=== PATIENT | female | born 1945 | race Caucasian/White ===

== ENCOUNTER 2016-09-16 11:06 | Day surgery (SDC) | payer MEDICARE ==
[2016-09-14 08:53] VITALS: BMI 39.5
[~2016-09-16 11:06] MED LIST: LACTATED RINGERS 1,000 ML IV SCH; LIDOCAINE 1% 20 ML VIAL (10MG/ML) FOR IV START INTRADERMA PRN
[2016-09-16 11:47] VITALS: TEMP 98
[2016-09-16] MEDS ORDERED: LACTATED RINGERS 1,000 ML IV ONE (11:47)
[2016-09-16] MEDS ORDERED: LEVOFLOXACIN 500MG-D5W PMX 500 MG in DEXTROSE/WATER 1 100ML.BAG IVPB ONE (12:00)
[2016-09-16 12:26] LABS: Partial Thromboplastin Time 23.2 sec (22.0-30.0); Prothrombin Time 10.2 sec (9.0-12.0)
[2016-09-16 12:29] LABS: Basophils # (A) 0.1 k/uL (0-0.2); Basophils % (A) 1 %; CH 29.9; CHCM 32.6; Eosinophils # (A) 0.1 k/uL (0-0.7); Eosinophils % (A) 2 %; HCT 43.3 % (34.0-46.0); HDW 2.35; HGB 14.4 gm/dL (11.4-16.0); Luc # (Auto) 0.18; Luc % (Auto) 3; Lymphocytes % (A) 30 %; MCH 30.6 pg (25.0-35.0); MCHC 33.2 g/dL (31.0-37.0); MCV 92.2 fL (80.0-100.0); Mean Platelet Volume 7.2; Monocytes # (A) 0.4 k/uL (0-1.0); Monocytes % (A) 5 %; Neutrophils % (A) 60 %; RBC 4.69 m/uL (3.80-5.40); RDW 12.8 % (11.5-15.5); WBC 6.7 k/uL (3.8-10.6); WBC (Perox) 6.23
[2016-09-16 12:31] LABS: AST 26 U/L (14-36); Alkaline Phosphatase 100 U/L (38-126); Anion Gap 9 mmol/L; Blood Urea Nitrogen 13 mg/dL (7-17); Carbon Dioxide 32 mmol/L (22-30); Chloride 101 mmol/L (98-107); Glucose 106 mg/dL (74-99); Non-African American GFR(MDRD) >60 (>60 ml/min/1.73 sqM); Potassium 4.8 mmol/L (3.5-5.1); Sodium 142 mmol/L (137-145); Total Bilirubin 0.5 mg/dL (0.2-1.3); Total Protein 7.2 g/dL (6.3-8.2)
[2016-09-16 12:37] LABS: ALT 49 U/L (9-52)
[2016-09-16] MEDS ORDERED: GLYCOPYRROLATE 0.2 MG/ML 2 ML VIAL ONE (13:01)
[2016-09-16] MEDS ORDERED: PROPOFOL 10 MG/ML 20 ML VIAL IV ONE (13:01)
[2016-09-16] MEDS ORDERED: LIDOCAINE 1% INJ 10MG/ML (20 ML MDV) ONE (13:01)
[2016-09-16] MEDS ORDERED: IOHEXOL 300 MG/ML 50 ML BOTTLE MISCELLANE ONE (13:35)
--- NOTE | 2016-09-16 13:38 | P.PCN ---
Date of Procedure: 09/16/16 Preoperative Diagnosis: Postoperative Diagnosis: Procedure(s) Performed: Brief history: Patient is a 71 year-old pleasant lady scheduled for an ERCP as part of evaluation of abdominal pain on-and-off for the last few months duration. She has history of recurrent choledocholithiasis and underwent multiple ERCPs in the past the last one was about 9 months ago and multiple stones were removed. Recently she is been having symptoms of intermittent epigastric and right upper quadrant abdominal pain. She is hence scheduled for repeat ERCP today. Procedure performed: ERCP with CBD stone extraction Preoperative diagnoses: Recurrent choledocholithiasis and intermittent abdominal pain. IV sedation per anesthesia: Procedure: After informed consent was obtained from the patient and after the risks benefits and complications including bleeding perforation and pancreatitis explained in detail the patient was brought into the endoscopy unit. The patient was placed in prone position and IV conscious sedation was administered by anesthesia under continuous monitoring. The Olympus side-viewing duodenoscope was then inserted into the mouth and esophagus intubated without any difficulty. The scope was gradually advanced into the stomach and duodenum. The major papilla was identified without any difficulty.There was evidence of previous biliary sphincterotomy noted. The sphincterotomy site appeared patent. This was cannulated without any difficulty and upon injection of the dye the common bile duct appeared significant dilated measuring about 2 cm in diameter was somewhat tortuous but no intrahepatic intrahepatic biliary ductal dilation. 1 cm filling defect was noted in the common bile duct. At this time I used a 12 mm balloon that was passed into the common bile duct gently inflated and withdrawn at least 4 stones were seen exiting the ampulla. Occlusion: Adjuvant was performed at this point and no other filling defects were noted. The pancreatic duct was intentionally not cannulated. The patient tolerated the procedure well. Impression: Dilated common bile duct measuring 2 cm in diameter with multiple small filling defects status post CBD stone extraction as described above. Patent biliary sphincterotomy site. Pancreatic duct not intentionally cannulated. Recommendations: The findings of this examination were discussed with the patient as well as a family. She was advised to continue with Actigall 300 mg twice daily and she'll be seen in office in 6 weeks from now. If she continues to have recurrent symptoms I will consider referring her to an outpatient tertiary care for management of recurrent CBD stones. Implants: Indications for Procedure: Operative Findings: Description of Procedure:
--- NOTE | 2016-09-16 13:47 | FL ---
EXAMINATION TYPE: FL ERCP HISTORY: Fluoroscopy time Impression: 1. Fluoroscopy support provided to the referring physician. 45 seconds of fluoroscopy time.
[2016-09-16 14:03] VITALS: BP 134/82; PULSE 78; RESP 18
--- NOTE | 2016-09-18 14:08 | CDI ---
Documentation Clarification OP Dear Dr. Patel. Please provide clarification regarding type of sedation provided. The Procedure note states IV conscious sedation was administered. The Anesthesia Record has MAC/Unconscious sedation circled under Technique. PLEASE RESPOND TO THIS QUERY BY DICTATING AN ADDENDUM TO YOUR PROCEDURE NOTE. Thank you for your assistance, RON White If you have any questions, please contact [facility] Angiography Technologist, Shirley Suarez at [phone]. [facility]
--- NOTE | 2016-09-21 05:42 | CDI ---
Documentation Clarification OP Dear Dr. Patel. Please provide clarification regarding type of sedation provided. The Procedure note states IV conscious sedation was administered. The Anesthesia Record has MAC/Unconscious sedation circled under Technique. PLEASE RESPOND TO THIS QUERY BY DICTATING AN ADDENDUM TO YOUR PROCEDURE NOTE. Thank you for your assistance, RON White If you have any questions, please contact [facility] Ruling Machine Set Up Operator, Shirley Suarez at [phone]. [facility]
--- NOTE | 2016-09-23 10:23 | CDI ---
Documentation Clarification OP Dear Dr. Patel. Please provide clarification regarding type of sedation provided. The Procedure note states IV conscious sedation was administered. The Anesthesia Record has MAC/Unconscious sedation circled under Technique. PLEASE RESOND TO THIS QUERY BY DICTATING AN ADDENDUM TO YOUR PROCEDURE NOTE. Thank you for your assistance, RON White If you have any questions, please contact [facility] Associate Professor Of Management, Shirley Suarez at . [facility]
--- NOTE | 2016-09-25 06:10 | CDI ---
Documentation Clarification OP Dear Dr. Patle. Please provide clarification regarding type of sedation provided. The Procedure note states IV conscious sedation was administered. The Anesthesia Record has MAC/Unconscious sedation circled under Technique. PLEASE RESPOND TO THIS QUERY BY DICTATING AN ADDENDUM TO YOUR PROCEDURE NOTE. Thank you for your assistance, RON White If you have any questions, please contact [facility] Learning Development Specialist, Shirley Suarez at [phone] [facility]
--- NOTE | 2016-09-30 05:17 | CDI ---
Documentation Clarification OP Dear Dr. Patel. Please provide clarification regarding type of sedation provided. The Procedure note states IV conscious sedation was administered. The Anesthesia Record has MAC/Unconscious sedation circled under Technique. PLEASE RESPOND TO THIS QUERY BY DICTATING AN ADDENDUM TO YOUR PROCEDURE NOTE. Thank you for your assistance RON White If you have any questions, please contact [facility] Actuarial Analyst, Shirley Suarez at [facility]
--- NOTE | 2016-10-06 07:07 | CDI ---
Documentation Clarification OP Dear Dr. Patel. Please provide clarification regarding type of sedation provided. The Procedure note states IV CONSCIOUS sedation was administered. The Anesthesia Record has MAC/UNCONSCIOUS sedation circled under Technique. PLEASE RESPOND TO THIS QUERY BY DICTATING AN ADDENDUM TO YOUR PROCEDURE NOTE. Thank you for your assistance RON White If you have any questions, please contact [facility] Microwave Engineer, Shirley Suarez at [facility]
--- NOTE | 2016-10-10 06:38 | CDI ---
Documentation Clarification OP Dear Dr. Patel. Please provide clarification regarding type of sedation provided. The Procedure note states IV conscious sedation was administered. The Anesthesia Record has MAC/Unconscious sedation circled under Technique. PLEASE RESPOND TO THIS QUERY BY DICTATING AN ADDENDUM TO YOUR PROCEDURE NOTE. Thank you for your assistance RON White If you have any questions, please contact [facility] In Store Representative, Shirley Suarez at [phone] [facility]
--- NOTE | 2016-10-15 08:59 | CDI ---
Documentation Clarification OP Dear Dr. Patel. Please provide clarification regarding type of sedation provided. The Anesthesia Record indicates that GA/Unconscious sedation was provided but Dr. Patel's template dictation says IV Conscious Sedation in the 3rd line of the Procedure Note under PROCEDURE heading. PLEASE RESPOND TO THIS QUERY BY DICTATING AN ADDENDUM TO YOUR PROCEDURE NOTE. Thank you for your assistance RON White If you have any questions, please contact [facility] Curriculum Director, Shirley Suarez at [facility]
--- NOTE | 2016-10-29 05:26 | PCN ---
PROCEDURE NOTE Date of Service: ADDENDUM NOTE: Addendum note for Dr. Pat Patel IV unconscious sedation was administered by Anesthesia for this patient's procedure. MMIMMANUELL / IJN: [id number] /
== END 2016-09-16 14:31 | disposition home or self-care (01) ==
LOC: ORWHC2ENDO 11:06
PROVIDERS: ATTEND Internal Medicine Gastroenterology
DX: K80.50 Calculus of bile duct without cholangitis or cholecystitis without obstruction (principal); K83.8 Other specified diseases of biliary tract; I10 Essential (primary) hypertension; E78.5 Hyperlipidemia, unspecified; J44.9 Chronic obstructive pulmonary disease, unspecified; K21.9 Gastro-esophageal reflux disease without esophagitis; E07.9 Disorder of thyroid, unspecified; Z79.899 Other long term (current) drug therapy; Z88.6 Allergy status to analgesic agent; Z88.5 Allergy status to narcotic agent
CPT/HCPCS: 80053; 85025; 85610; 85730; 74330; 43277; J1956; J2001; J2704; Q9967; 43260; 43264

== ENCOUNTER → 2018-08-30 | Outpatient (CLI) | payer MEDICARE ==
[2018-08-30 18:39] LABS: Appearance,BF Cloudy
[2018-08-30 18:48] LABS: Mononuclear WBC,Body Fluid 91 %; Polynuclear WBC,Body Fluid 9 %; Total Cells Counted,Body Fluid 100
[2018-08-31 10:32] LABS: Nucleated Cells, Body Fluid 280 /uL
[2018-08-31 10:33] LABS: RBC, Body Fluid 2500 /uL
== END | disposition home or self-care (01) ==
LOC: LABWHC1 15:04
PROVIDERS: ATTEND Orthopaedic Surgery
DX: M25.561 Pain in right knee (principal); Z09 Encounter for follow-up examination after completed treatment for conditions other than malignant neoplasm
CPT/HCPCS: 87070; 87075; 87205; 89050; 89060

== ENCOUNTER 2019-01-12 10:51 | Inpatient (IN) | payer MEDICARE ==
[2019-01-12] MEDS ORDERED: ONDANSETRON 4 MG/2 ML VIAL IVP STA (11:28)
[2019-01-12] MEDS ORDERED: SODIUM CHLORIDE 0.9% 1,000 ML IV STA ×2 (11:28)
--- NOTE | 2019-01-12 11:41 | ED ---
General Adult HPI - General Chief complaint: Recheck/Abnormal Lab/Rx Stated complaint: Kidney stones Time Seen by Provider: 01/12/19 11:10 Source: patient, RN notes reviewed Mode of arrival: wheelchair Limitations: physical limitation - History of Present Illness Initial comments: This 73-year-old female history of bile duct stones with several ERCPs having been performed in the past who states she had the onset around 2:30 AM this morning of severe 10+/10 mid and upper abdominal pain. She has nausea with that she still has nausea she states the pain is 0 right now. She states she has had a cholecystectomy in the past who has a tortuous, bile duct and does have frequency information. He has had occasional chills with this is chronic and not associated with today's event. No other modifying factors this time she did have some vomiting earlier today but was clear. - Related Data Home Medications Medication Instructions Recorded Confirmed Albuterol Inhaler [Ventolin Hfa 2 puff INHALATION Q6H PRN 11/07/15 09/14/16 Inhaler] Ascorbic Acid [Vitamin C] 500 mg PO DAILY 11/07/15 09/14/16 Cranberry Fruit Extract [Cranberry] 500 mg PO DAILY 11/07/15 09/14/16 Fish Oil/Dha/Epa [Fish Oil 1,200 1 each PO DAILY 11/07/15 09/14/16 mg Fish Oil] Levothyroxine Sodium [Synthroid] 50 mcg PO DAILY 11/07/15 09/14/16 Lisinopril [Prinivil] 5 mg PO DAILY 11/07/15 09/14/16 Multivitamins, Thera [Multivitamin] 1 tab PO DAILY 11/07/15 09/16/16 Omeprazole 20 mg PO DAILY 11/07/15 09/14/16 Simvastatin [Zocor] 40 mg PO HS 11/07/15 09/14/16 Tiotropium [place] [Spiriva] 1 cap INHALATION DAILY 11/07/15 09/14/16 Ursodiol [Davy] 250 mg PO BID 11/07/15 09/14/16 Vitamin E (Dl,Tocopheryl Acet) 800 unit PO DAILY 11/07/15 09/14/16 [Vitamin E] Betamethasone Dipropionate 1 applic TOPICAL DAILY 09/14/16 09/14/16 [Diprolene AF 0.05% Cream] Clotrimazole/Betameth Cream 1 applic TOPICAL BID 09/14/16 09/14/16 [Lotrisone] Nystatin 100,000 Unit/gm Powd 1 applic TOPICAL BID 09/14/16 09/14/16 [Mycostatin Powder] Allergies Allergy/AdvReac Type Severity Reaction Status Date / Time ibuprofen Allergy Severe Nausea Verified 01/12/19 11:15 codeine Allergy Intermediate Nausea Verified 01/12/19 11:15 Review of Systems ROS Statement: Those systems with pertinent positive or pertinent negative responses have been documented in the HPI. ROS Other: All systems not noted in ROS Statement are negative. Past Medical History Past Medical History: COPD, GERD/Reflux, Hyperlipidemia, Hypertension, Osteoarthritis (OA), Skin Disorder, Thyroid Disorder Additional Past Medical History / Comment(s): hx ulcerative colitis, rash on arms, irritation in abd. skin folds, bile stones History of Any Multi-Drug Resistant Organisms: None Reported Past Surgical History: Breast Surgery, Cholecystectomy, Hysterectomy, Joint Replacement, Tonsillectomy Additional Past Surgical History / Comment(s): rt knee replacement, cyst removed from back, rt breast biopsy, ERCP Past Anesthesia/Blood Transfusion Reactions: Motion Sickness Past Psychological History: No Psychological Hx Reported Smoking Status: Former smoker Past Alcohol Use History: Occasional Past Drug Use History: None Reported - Past Family History Mother Family Medical History: Cancer General Exam - General Exam Comments Initial Comments: This is a well-developed well-nourished awake alert oriented 3 female Limitations: physical limitation General appearance: alert, in no apparent distress Head exam: Present: atraumatic, normocephalic, normal inspection Eye exam: Present: normal appearance, PERRL, EOMI. Absent: scleral icterus, conjunctival injection, periorbital swelling ENT exam: Present: mucous membranes dry Neck exam: Present: normal inspection. Absent: tenderness, meningismus, lym phadenopathy Respiratory exam: Present: normal lung sounds bilaterally. Absent: respiratory distress, wheezes, rales, rhonchi, stridor Cardiovascular Exam: Present: regular rate, normal rhythm, normal heart sounds. Absent: systolic murmur, diastolic murmur, rubs, gallop, clicks GI/Abdominal exam: Present: soft, normal bowel sounds. Absent: distended, tenderness, guarding, rebound, rigid Extremities exam: Present: normal inspection, full ROM, normal capillary refill. Absent: tenderness, pedal edema, joint swelling, calf tenderness Back exam: Present: normal inspection Neurological exam: Present: alert, oriented X3, CN II-XII intact Psychiatric exam: Present: normal affect, normal mood Skin exam: Present: warm, dry, intact, normal color. Absent: rash Course Vital Signs 01/12/19 11:12 Temperature 98.7 F Pulse Rate 105 H Respiratory 18 Rate Blood Pressure 123/62 O2 Sat by Pulse 95 Oximetry Medical Decision Making - Medical Decision Making I did discuss findings with the patient family as well as Dr. Patel. Patient will be admitted to Dr. العلي's service with Dr. Patel and consult and ERCP pending. Her nausea is improved - Lab Data Result diagrams: 01/12/19 11:32 01/12/19 11:28 Lab Results 01/12/19 01/12/19 01/12/19 Range/Units 11:28 11:28 11:32 WBC 6.6 (3.8-10.6) k/uL RBC 4.46 (3.80-5.40) m/uL Hgb 13.6 (11.4-16.0) gm/dL Hct 41.0 (34.0-46.0) % MCV 92.1 (80.0-100.0) fL MCH 30.5 (25.0-35.0) pg MCHC 33.1 (31.0-37.0) g/dL RDW 12.7 (11.5-15.5) % Plt Count 200 (150-450) k/uL Neutrophils % (Manual) 74 % Band Neutrophils % 14 % Lymphocytes % (Manual) 7 % Monocytes % (Manual) 3 % Metamyelocytes % 2 % Myelocytes % 1 % Neutrophils # (Manual) 5.80 (1.3-7.7) k/uL Lymphocytes # (Manual) 0.46 L (1.0-4.8) k/uL Monocytes # (Manual) 0.20 (0-1.0) k/uL Metamyelocytes # (Man) 0.13 H (0) k/uL Myelocytes # (Manual) 0.07 H (0) k/uL Nucleated RBCs 0 (0-0) /100 WBC Manual Slide Review Performed Toxic Granulation Present Sodium 139 (137-145) mmol/L Potassium 4.0 (3.5-5.1) mmol/L Chloride 106 (98-107) mmol/L Carbon Dioxide 25 (22-30) mmol/L Anion Gap 8 mmol/L BUN 23 H (7-17) mg/dL Creatinine 0.52 (0.52-1.04) mg/dL Est GFR (CKD-EPI)AfAm >90 (>60 ml/min/1.73 sqM) Est GFR (CKD-EPI)NonAf >90 (>60 ml/min/1.73 sqM) Glucose 136 H (74-99) mg/dL Calcium 9.0 (8.4-10.2) mg/dL Total Bilirubin 1.8 H (0.2-1.3) mg/dL AST 238 H (14-36) U/L ALT 194 H (9-52) U/L Alkaline Phosphatase 123 (38-126) U/L Creatine Kinase 89 (30-135) U/L Troponin I <0.012 (0.000-0.034) ng/mL Total Protein 6.8 (6.3-8.2) g/dL Albumin 4.1 (3.5-5.0) g/dL Amylase <30 L (30-110) U/L Lipase 83 (23-300) U/L - Radiology Data Radiology results: report reviewed (I did review the imaging and report no acute findings.), image reviewed Disposition Clinical Impression: Abdominal pain, Biliary stones, Hyperbilirubinemia, Elevated liver enzymes Disposition: ADMITTED IP TO THIS [facility] Condition: Fair Referrals: Musa Wakefield MD [Primary Care Provider] - 1-2 days
[2019-01-12 11:54] LABS: HGB 13.6 gm/dL (11.4-16.0); MCH 30.5 pg (25.0-35.0); MCHC 33.1 g/dL (31.0-37.0); MCV 92.1 fL (80.0-100.0); Mean Platelet Volume 6.9; Platelet Count 200 k/uL (150-450); RBC 4.46 m/uL (3.80-5.40); RDW 12.7 % (11.5-15.5); WBC 6.6 k/uL (3.8-10.6)
[2019-01-12 12:05] LABS: ALT 194 U/L (9-52); AST 238 U/L (14-36); African American GFR (CKD) >90 (>60 ml/min/1.73 sqM); Albumin 4.1 g/dL (3.5-5.0); Alkaline Phosphatase 123 U/L (38-126); Amylase <30 U/L (30-110); Anion Gap 8 mmol/L; Blood Urea Nitrogen 23 mg/dL (7-17); Carbon Dioxide 25 mmol/L (22-30); Chloride 106 mmol/L (98-107); Creatine Kinase 89 U/L (30-135); Glucose 136 mg/dL (74-99); Non-African American GFR(CKD) >90 (>60 ml/min/1.73 sqM); Sodium 139 mmol/L (137-145); Total Bilirubin 1.8 mg/dL (0.2-1.3); Total Protein 6.8 g/dL (6.3-8.2)
[2019-01-12 12:15] LABS: Band Neutrophils % 14 %; Lymphocytes # (M) 0.46 k/uL (1.0-4.8); Metamyelocytes # (M) 0.13 k/uL (0); Metamyelocytes % 2 %; Myelocytes # (M) 0.07 k/uL (0); Myelocytes % 1 %; Neutrophils % (M) 74 %; Nucleated Red Blood Cells 0 /100 WBC (0-0); Total Cells Counted 200
[2019-01-12 12:17] LABS: Toxic Granulation Present
--- NOTE | 2019-01-12 12:38 | XR ---
EXAMINATION TYPE: XR KUB DATE OF EXAM: 01/12/2019 COMPARISON: NONE HISTORY: Right upper quadrant pain TECHNIQUE: One view abdominal series FINDINGS: The osseous structures are intact. The bowel gas pattern is nonspecific. Lung bases are clear. Dege nerative change of the spine. Postsurgical changes noted. Arthropathy of the hips correlate for femor al acetabular. IMPRESSION: 1. Nonspecific abdomen.
[2019-01-12] MEDS ORDERED: HYDROmorphone 0.5 MG/0.5 ML SYRINGE IVP PRN (13:05)
[2019-01-12] MEDS ORDERED: ONDANSETRON 4 MG/2 ML VIAL IVP PRN (13:05)
[2019-01-12] MEDS ORDERED: NALOXONE 0.4 MG/ML 1 ML VIAL IV PRN (13:05)
[2019-01-12] MEDS ORDERED: ALBUTEROL NEBULIZED 2.5 MG/3 ML INHALATION PRN (13:08)
[2019-01-12 13:53] LABS: Appearance,Urine Clear (Clear); Bilirubin,Urine 1+ (Negative); Blood,Urine Negative (Negative); Color,Urine Dark Yellow; Glucose,Urine (UA) Negative (Negative); Ketones,Urine Negative (Negative); Leukocyte Esterase,Urine Negative (Negative); Nitrite,Urine Negative (Negative); Protein,Urine Trace (Negative); Specific Gravity,Urine 1.026 (1.001-1.035)
[2019-01-12] MEDS: SODIUM CHLORIDE 0.9% 1,000 ML IV SCH ×2 (15:04→20:45)
[2019-01-12] MEDS ORDERED: KETOROLAC 30 MG/ML 1 ML VIAL IVP PRN (15:29)
[2019-01-12] MEDS ORDERED: NYSTATIN 100,000UNIT/GM CREAM 30 GM TUBE TOPICAL PRN (15:29)
--- NOTE | 2019-01-12 15:41 | P.HPIM ---
History of Present Illness Patient is a very pleasant 73-year-old female came in with complaints of right upper quadrant pain severe in/10 in severity up on admission completely resolved now with pain medications. Patient had a cholecystectomy in the past has a cautious bile that and had multiple episodes of stones in the common bile duct which needed intervention. Patient denied any fever chills. Patient is found to have elevated liver enzymes elevated bilirubin KUB x-ray was opted which did not show anything obtain ultrasound of the common bile duct. Patient appears to have choledocholithiasis at this time and gastroneurology was consulted. Antonia ent had some nausea. This resolved at this time. Review of Systems REVIEW OF SYSTEMS: CONSTITUTIONAL: No fever, no malaise, no fatigue. HEENT: No recent visual problems or hearing problems. Denied any sore throat. CARDIOVASCULAR: No chest pain, orthopnea, PND, no palpitations, no syncope. PULMONARY: No shortness of breath, no cough, no hemoptysis. GASTROINTESTINAL: No diarrhea NEUROLOGICAL: No headaches, no weakness, no numbness. HEMATOLOGICAL: Denies any bleeding or petechiae. GENITOURINARY: Denies any burning micturition, frequency, or urgency. MUSCULOSKELETAL/RHEUMATOLOGICAL: Denies any joint pain, swelling, or any muscle pain. ENDOCRINE: Denies any polyuria or polydipsia. The rest of the 14-point review of systems is negative. Past Medical History Past Medical History: COPD, GERD/Reflux, Hyperlipidemia, Hypertension, Osteoarthritis (OA), Skin Disorder, Thyroid Disorder Additional Past Medical History / Comment(s): hx ulcerative colitis, rash on arms, irritation in abd. skin folds, bile stones, hypothyroid History of Any Multi-Drug Resistant Organisms: None Reported Past Surgical History: Breast Surgery, Cholecystectomy, Hysterectomy, Joint Replacement, Tonsillectomy Additional Past Surgical History / Comment(s): rt knee replacement, cyst removed from back, rt breast biopsy, ERCP Past Anesthesia/Blood Transfusion Reactions: Motion Sickness Past Psychological History: No Psychological Hx Reported Smoking Status: Former smoker Past Alcohol Use History: Occasional Additional Past Alcohol Use History / Comment(s): quit smoking in 2011, smoked 1/2-1ppd for 50 yrs. Past Drug Use History: None Reported - Past Family History Mother Family Medical History: Cancer Medications and Allergies Home Medications Medication Instructions Recorded Confirmed Type Albuterol Inhaler [Ventolin Hfa 2 puff INHALATION RT-Q6H PRN 11/07/15 01/12/19 History Inhaler] Ascorbic Acid [Vitamin C] 500 mg PO DAILY 11/07/15 01/12/19 History Fish Oil/Dha/Epa [Fish Oil 1,200 1 cap PO DAILY 11/07/15 01/12/19 History mg Fish Oil] Lisinopril [Prinivil] 5 mg PO DAILY 11/07/15 01/12/19 History Multivitamins, Thera [Multivitamin] 1 tab PO DAILY 11/07/15 01/12/19 History Omeprazole 20 mg PO BID 11/07/15 01/12/19 History Simvastatin [Zocor] 40 mg PO HS 11/07/15 01/12/19 History Ursodiol [Davy] 250 mg PO TID-W/MEALS 11/07/15 01/12/19 History Vitamin E (Dl,Tocopheryl Acet) 800 unit PO DAILY 11/07/15 01/12/19 History [Vitamin E] Betamethasone Dipropionate 1 applic TOPICAL BID PRN 09/14/16 01/12/19 History [Diprolene AF 0.05% Cream] Clotrimazole/Betameth Cream 1 applic TOPICAL BID PRN 09/14/16 01/12/19 History [Lotrisone] Cholecalciferol [Vitamin D3 (25 1,000 unit PO DAILY 01/12/19 01/12/19 History Mcg = 1000 Iu)] Levothyroxine Sodium [Synthroid] 75 mcg PO HS 01/12/19 01/12/19 History Nystatin 1 applic TOPICAL BID PRN 01/12/19 01/12/19 History Tiotropium [place] [Spiriva 2 puff INHALATION RT-DAILY 01/12/19 01/12/19 History Respimat] Allergies Allergy/AdvReac Type Severity Reaction Status Date / Time ibuprofen Allergy Severe Nausea Verified 01/12/19 13:23 codeine Allergy Intermediate Nausea Verified 01/12/19 13:23 Physical Exam Vitals: Vital Signs Temp Pulse Pulse Resp BP BP Pulse Ox 01/12/19 15:07 99.9 F H 102 H 18 109/68 90 L 01/12/19 13:45 98.3 F 01/12/19 13:10 94 18 142/67 94 L 01/12/19 11:12 98.7 F 105 H 18 123/62 95 Intake and Output 01/12/19 01/12/19 01/12/19 06:59 14:59 22:59 Other: Weight 113.398 kg PHYSICAL EXAMINATION: GENERAL: The patient is alert and oriented x3, not in any acute distress. Well developed, well nourished. HEENT: Pupils are round and equally reacting to light. EOMI. No scleral icterus. No conjunctival pallor. Normocephalic, atraumatic. No pharyngeal erythema. No thyromegaly. CARDIOVASCULAR: S1 and S2 present. No murmurs, rubs, or gallops. PULMONARY: Chest is clear to auscultation, no wheezing or crackles. ABDOMEN: Soft, nontender, nondistended, normoactive bowel sounds. No palpable organomegaly. MUSCULOSKELETAL: No joint swelling or deformity. EXTREMITIES: No cyanosis, clubbing, or pedal edema. NEUROLOGICAL: Gross neurological examination did not reveal any focal deficits. SKIN: No rashes. Results CBC & Chem 7: 01/12/19 11:32 01/12/19 11:28 Labs: Abnormal Lab Results - Last 24 Hours (Table) 01/12/19 01/12/19 01/12/19 Range/Units 11:28 11:32 13:14 Lymphocytes # (Manual) 0.46 L (1.0-4.8) k/uL Metamyelocytes # (Man) 0.13 H (0) k/uL Myelocytes # (Manual) 0.07 H (0) k/uL BUN 23 H (7-17) mg/dL Glucose 136 H (74-99) mg/dL Total Bilirubin 1.8 H (0.2-1.3) mg/dL AST 238 H (14-36) U/L ALT 194 H (9-52) U/L Amylase <30 L (30-110) U/L Urine Protein Trace H (Negative) Urine Bilirubin 1+ H (Negative) Thrombosis Risk Factor Assmnt - Choose All That Apply Any of the Below Risk Factors Present?: Yes Each Factor Represents 1 point: Obesity (BMI >25), Swollen legs (current) Other Risk Factors: Yes Each Risk Factor Represents 2 Points: Age 61-74 years Other congenital or acquired thrombophilia - If yes, enter type in comment: No Thrombosis Risk Factor Assessment Total Risk Factor Score: 4 Thrombosis Risk Factor Assessment Level: Moderate Risk Assessment and Plan Plan: - right upper quadrant abdominal pain with elevated liver enzymes possibility of choledocholithiasis is no evidence of ascending cholangitis so far patient will not be started on any antibiotic support to get IV fluids patient was started on diet as I do not anticipate any ERCP today gastroenterology was consulted. Patient will be made nothing by mouth after midnight. -COPD without any acute acceleration - gastroesophageal reflux disease -hyperlipidemia -Hypertension -Hypothyroidism
--- NOTE | 2019-01-12 16:57 | US ---
EXAMINATION TYPE: US gallbladder DATE OF EXAM: 01/12/2019 COMPARISON: NONE CLINICAL HISTORY: elevated liver enzymes. Elevated LFT's, GB removed, RUQ pain EXAM MEASUREMENTS: Liver Length: 19.3 cm CBD: 1.3 cm Right Kidney: 12.0 x 6.2 x 6.0 cm Pancreas: 3mm duct visualized Liver: Enlarged, difficult to penetrate, pt unable to take a big breath in and hold it Gallbladder: Surgically absent Evidence for sonographic Barrett's sign: No CBD: Dilated with 2 probable stones within duct= 1.7 cm & 1.0 cm Right Kidney: Cyst mid= 7.1 x 5.6 x 6.5 cm/ Possible ill-defined hypoechoic lesion lower pole= 5.2 x 3.9 x 3.8 cm IMPRESSION: There are large common duct gallstones. Dilated common bile duct. Large right renal cysts . No right-sided hydronephrosis. No discrete liver mass.
[2019-01-12] MEDS: PIPERACILLIN-TAZOBACTAM 3.375 GM in SODIUM CHLORIDE 0.9% 100 ML IVPB SCH (17:20)
[2019-01-12] MEDS: CLOTRIMAZOLE/BETAMETH 1-0.05% CREAM 45 GM TUBE TOPICAL SCH (20:44)
[2019-01-12] MEDS: LEVOTHYROXINE 75 MCG TAB PO SCH (20:44)
[2019-01-12] MEDS: FAMOTIDINE 20 MG TAB PO SCH (20:44)
--- NOTE | 2019-01-12 23:01 | CONS ---
CONSULTATION DATE OF DICTATION: 01/12/2019 REASON FOR CONSULTATION: Severe epigastric pain, elevated LFTs and jaundice. HISTORY OF PRESENT ILLNESS: The patient is a 73-year-old pleasant white female who is known to me from her multiple previous office visits and hospitalizations. She has history of recurrent choledocholithiasis requiring multiple ERCPs over the last 4 years. Her last ERCP was in September of 2017 and CBD stones were extracted. She woke up this morning with severe epigastric pain radiating to the right upper quadrant area and had low-grade fever. She took 2 Tylenol, came into the emergency room, and was noted to have elevated serum transaminases and bilirubin up to 1.9. She was admitted to the hospital for further evaluation. She is at present feeling much better. The abdominal pain has resolved. She continues to have low-grade fever. PAST MEDICAL HISTORY: Past medical history is significant for: 1. Gastroesophageal reflux disease. 2. Hypertension. 3. Hyperlipidemia. 4. Degenerative joint disease. 5. COPD. 6. Hypothyroidism. PAST SURGICAL HISTORY: 1. Gallbladder surgery several years ago. 2. Breast surgery. 3. Hysterectomy. 4. Tonsillectomy. 5. Right knee replacement. 6. Multiple ERCPs, last one in September of 2017. MEDICATIONS: Medications at home include: 1. Albuterol. 2. Fish oil. 3. Vitamin C. 4. Multivitamin. 5. Prinivil. 6. Zocor. 7. Davy. 8. Spiriva. 9. Nystatin. 10.Synthroid. ALLERGIES: IBUPROFEN and CODEINE. SOCIAL HISTORY: No smoking. No alcohol use. FAMILY HISTORY: Mother had some kind of cancer. REVIEW OF SYSTEMS: CARDIOPULMONARY: No chest pain or shortness of breath. GENITOURINARY: No dysuria or hematuria. MUSCULOSKELETAL: Unremarkable. SKIN: Unremarkable. ENDOCRINE: Unremarkable. PSYCHIATRIC: Unremarkable. NEUROLOGY: Unremarkable. ENT/VISION: Unremarkable. CONSTITUTIONAL: No recent weight loss. No fever, chills, night sweats. PHYSICAL EXAMINATION: She appears comfortable. No apparent distress. VITAL SIGNS: Stable. Blood pressure is 109/68, pulse rate 102, temperature 99.9. HEENT examination unremarkable. Conjunctivae pink. Sclerae anicteric. Oral cavity no lesions. NECK: No JVD or lymph node enlargement. CHEST: Clear to auscultation. HEART: Regular rate and rhythm. ABDOMEN: Soft. Bowel sounds are positive. No organomegaly. EXTREMITIES: No pedal edema. SKIN: No rashes. NEUROLOGIC: Alert and oriented x3. No focal deficits. LABS: WBC 6.6, hemoglobin 13.6, platelets normal. T-bilirubin 1.8, AST 238, ALT 194, alkaline phosphatase normal. IMPRESSION: This is a lady who presents with acute onset of severe epigastric pain associated with low-grade fever and chills that started early this morning. She has prior history of gallbladder surgery many years ago and multiple and recurrent choledocholithiasis requiring pediatric ERCPs. The last one was in September of 2017, and CBD stones were extracted. She has low-grade fever. Possibility of ascending cholangitis needs to be considered. RECOMMENDATIONS: 1. Empiric antibiotics with Zosyn q.8 hours. 2. Clear liquid diet. 3. Repeat labs in the morning. 4. Will proceed with an ERCP tomorrow. I discussed with the patient risks, benefits and complications of the procedure, and she is agreeable to it. MMODL / IJN: [id number] /
[2019-01-13] MEDS: PIPERACILLIN-TAZOBACTAM 3.375 GM in SODIUM CHLORIDE 0.9% 100 ML IVPB SCH ×4 (00:29→23:51)
[2019-01-13] MEDS: SODIUM CHLORIDE 0.9% 1,000 ML IV SCH ×3 (05:30→23:53)
[2019-01-13] MEDS: IPRATROPIUM 0.5 MG/2.5 ML NEBU INHALATION SCH ×4 (08:24→19:37)
[2019-01-13] MEDS: BETAMETHASONE DIPROPIONATE 0.05% CREAM 15 GM TUBE TOPICAL SCH (08:57)
[2019-01-13] MEDS: CLOTRIMAZOLE/BETAMETH 1-0.05% CREAM 45 GM TUBE TOPICAL SCH ×2 (08:57→21:55)
[2019-01-13] MEDS: FAMOTIDINE 20 MG TAB PO SCH ×2 (08:58→21:55)
[2019-01-13] MEDS ORDERED: PANTOPRAZOLE 40 MG/10 ML VIAL IV SCH (09:00)
[2019-01-13 10:25] LABS: Basophils # (A) 0.1 k/uL (0-0.2); Basophils % (A) 1 %; Eosinophils # (A) 0.2 k/uL (0-0.7); Eosinophils % (A) 1 %; HGB 11.8 gm/dL (11.4-16.0); Lymphocytes # (A) 0.7 k/uL (1.0-4.8); Lymphocytes % (A) 6 %; MCH 30.3 pg (25.0-35.0); MCV 94.5 fL (80.0-100.0); Mean Platelet Volume 8.2; Monocytes # (A) 0.5 k/uL (0-1.0); Monocytes % (A) 4 %; Neutrophils # (A) 11.3 k/uL (1.3-7.7); Neutrophils % (A) 88 %; Platelet Count 165 k/uL (150-450); RBC 3.91 m/uL (3.80-5.40); RDW 13.1 % (11.5-15.5); WBC 12.9 k/uL (3.8-10.6)
[2019-01-13 10:43] LABS: ALT 141 U/L (9-52); AST 97 U/L (14-36); African American GFR (CKD) >90 (>60 ml/min/1.73 sqM); Albumin 3.3 g/dL (3.5-5.0); Alkaline Phosphatase 79 U/L (38-126); Anion Gap 6 mmol/L; Blood Urea Nitrogen 13 mg/dL (7-17); Calcium 8.6 mg/dL (8.4-10.2); Carbon Dioxide 32 mmol/L (22-30); Chloride 103 mmol/L (98-107); Glucose 109 mg/dL (74-99); Non-African American GFR(CKD) 87 (>60 ml/min/1.73 sqM); Potassium 3.5 mmol/L (3.5-5.1); Sodium 141 mmol/L (137-145); Total Bilirubin 1.4 mg/dL (0.2-1.3); Total Protein 5.8 g/dL (6.3-8.2)
[2019-01-13] MEDS ORDERED: INDOMETHACIN 50MG SUPPOSITORY RECTAL ONE (14:00)
[2019-01-13] MEDS ORDERED: IV FLUID CONTINUATION 300 ML IV ONE (15:44)
[2019-01-13] MEDS ORDERED: LIDOCAINE 1% INJ 10MG/ML (20 ML MDV) ONE (15:53)
[2019-01-13] MEDS ORDERED: fentaNYL (PF) 50 MCG/ML 2 ML AMP ONE (15:53)
[2019-01-13] MEDS ORDERED: GLUCAGON 1 MG/ML VIAL ONE (15:53)
[2019-01-13] MEDS ORDERED: KETAMINE 10 MG/ML 20 ML VIAL ONE (15:53)
[2019-01-13] MEDS ORDERED: PROPOFOL 10 MG/ML 20 ML VIAL IV ONE (15:53)
[2019-01-13] MEDS ORDERED: GLYCOPYRROLATE 0.2 MG/ML 2 ML VIAL ONE (15:53)
[2019-01-13] MEDS ORDERED: MIDAZOLAM 2 MG/2 ML VIAL ONE (15:53)
--- NOTE | 2019-01-13 16:33 | P.PN ---
Subjective Progress Note Date: 01/13/19 73-year-old female came in with complaints of right upper quadrant pain severe in/10 in severity up on admission completely resolved now with pain medications. Patient had a cholecystectomy in the past has a cautious bile that and had multiple episodes of stones in the common bile duct which needed intervention. Patient denied any fever chills. Patient is found to have elevated liver enzymes elevated bilirubin KUB x-ray was opted which did not show anything obtain ultrasound of the common bile duct. Patient appears to have choledocholithiasis at this time and gastroneurology was consulted. 01/13/2019 Patient is seen and evaluated in room at bedside; scheduled for ERCP this afternoon Vital signs remained stable with a temperature 97.6, pulse 92, respirations 16 and blood pressure of 116/55 Lab review shows slight elevation in white blood count of 12.9, hemoglobin 11.8 and platelet count of 165; total bilirubin and AST/ALT are trending down slowly Patient is scheduled for ERCP this afternoon for stone removal; we will continue to monitor liver enzymes; patient remains on IV Unasyn Objective - Vital Signs Vital signs: Vital Signs Temp 97.6 F 01/13/19 07:55 Pulse 92 01/13/19 07:55 Resp 16 01/13/19 07:55 BP 116/55 01/13/19 07:55 Pulse Ox 90 L 01/13/19 07:55 Intake & Output 01/12/19 01/13/19 01/13/19 18:59 06:59 18:59 Intake Total 2430 Balance 2430 Weight 113.398 kg Intake: Intake, IV Titration 1600 Amount Piperacillin-Tazobactam 3 100 .375 gm In Sodium Chloride 0.9% 100 ml @ 25 mls/hr IVPB Q8HR [facility] Rx# :[id number] Sodium Chloride 0.9% 1, 1500 000 ml @ 125 mls/hr IV . Q8H [facility] Rx#:[id number] Oral 830 Other: Voiding Method Toilet # Voids 4 # Bowel Movements 1 - Exam GENERAL: The patient is alert and oriented x3, not in any acute distress. Well developed, well nourished. HEENT: Pupils are round and equally reacting to light. EOMI. No scleral icterus. No conjunctival pallor. Normocephalic, atraumatic. No pharyngeal erythema. No thyromegaly. CARDIOVASCULAR: S1 and S2 present. No murmurs, rubs, or gallops. PULMONARY: Chest is clear to auscultation, no wheezing or crackles. ABDOMEN: Soft, nontender, nondistended, normoactive bowel sounds. No palpable organomegaly. MUSCULOSKELETAL: No joint swelling or deformity. EXTREMITIES: No cyanosis, clubbing, or pedal edema. NEUROLOGICAL: Gross neurological examination did not reveal any focal deficits. SKIN: No rashes. - Labs CBC & Chem 7: 01/13/19 10:06 01/13/19 10:06 Labs: Abnormal Lab Results - Last 24 Hours (Table) 01/12/19 01/12/19 01/12/19 Range/Units 11:28 11:32 13:14 WBC (3.8-10.6) k/uL Neutrophils # (1.3-7.7) k/uL Lymphocytes # (1.0-4.8) k/uL Lymphocytes # (Manual) 0.46 L (1.0-4.8) k/uL Metamyelocytes # (Man) 0.13 H (0) k/uL Myelocytes # (Manual) 0.07 H (0) k/uL BUN 23 H (7-17) mg/dL Glucose 136 H (74-99) mg/dL Total Bilirubin 1.8 H (0.2-1.3) mg/dL AST 238 H (14-36) U/L ALT 194 H (9-52) U/L Amylase <30 L (30-110) U/L Urine Protein Trace H (Negative) Urine Bilirubin 1+ H (Negative) 01/13/19 Range/Units 10:06 WBC 12.9 H (3.8-10.6) k/uL Neutrophils # 11.3 H (1.3-7.7) k/uL Lymphocytes # 0.7 L (1.0-4.8) k/uL Lymphocytes # (Manual) (1.0-4.8) k/uL Metamyelocytes # (Man) (0) k/uL Myelocytes # (Manual) (0) k/uL BUN (7-17) mg/dL Glucose (74-99) mg/dL Total Bilirubin (0.2-1.3) mg/dL AST (14-36) U/L ALT (9-52) U/L Amylase (30-110) U/L Urine Protein (Negative) Urine Bilirubin (Negative) Assessment and Plan Assessment: - right upper quadrant abdominal pain with elevated liver enzymes possibility of choledocholithiasis is no evidence of ascending cholangitis so far patient will not be started on any antibiotic support to get IV fluids patient was started on diet as I do not anticipate any ERCP today gastroenterology was consulted. Patient will be made nothing by mouth after midnight. -COPD without any acute acceleration - gastroesophageal reflux disease -hyperlipidemia -Hypertension -Hypothyroidism Time with Patient: Greater than 30
--- NOTE | 2019-01-13 17:04 | P.PCN ---
Date of Procedure: 01/13/19 Procedure(s) Performed: Brief history: Patient is a 73 year-old pleasant lady scheduled for an ERCP as part of evaluation of abdominal pain and elevated serum transaminases for the last 2 days' duration. Had low-grade fever. She has history of recurrent choledocholithiasis and last ERCP was performed in September 2017 and CBC stones were extracted. Procedure performed: ERCP with CBC on extraction Preoperative diagnoses: Epigastric and right upper quadrant abdominal pain and elevated LFTs/history of recurrent choledocholithiasis IV sedation per anesthesia: Procedure: After informed consent was obtained from the patient and after the risks benefits and complications including bleeding perforation and pancreatitis explained in detail the patient was brought into the endoscopy unit. The patient was placed in prone position and IV conscious sedation was administered by anesthesia under continuous monitoring. The Olympus side-viewing duodenoscope was then inserted into the mouth and esophagus intubated without any difficulty. The scope was gradually advanced into the stomach and duodenum. The major papilla was identified with moderate to severe difficulty. Evidence of prior biliary sphincterotomy noted. Initial cannulation resulted in opacification of the common bile duct. Common bile duct was dilated measuring 2 cm in diameter with multiple filling defects noted the largest measuring about 1.5 cm in size. At this time a 15 mm balloon was passed over the guidewire into the proximal CBD and gently withdrawn and significant amount of sludge and stones were seen exiting the ampulla. I was not able to withdraw the 15 mm balloon and hence 11.5 mm balloon was used to extract the stones. Patient tolerated the procedure well. Pancreatic duct was not intentionally cannulated. Impression: Dilated common bile duct with multiple filling defects status post balloon stone extraction and at least 3 or 4 stooling stones with significant amount of sludge extracted from the common bile duct. Pancreatic duct intentionally not cannulated. Recommendations: The findings of this examination were discussed with the patient as well as a family. She'll be started on clear liquid diet. Labs will be repeated tomorrow morning. Continue with antibiotics.
[2019-01-13] MEDS ORDERED: IOHEXOL 300 MG/ML 50 ML BOTTLE MISCELLANE ONE (17:10)
[2019-01-13] MEDS ORDERED: SODIUM CHLORIDE 0.9% 500 ML IV ONE (17:11)
[2019-01-13] MEDS: LEVOTHYROXINE 75 MCG TAB PO SCH (21:55)
[2019-01-14 05:42] LABS: Basophils % (A) 0 %; Eosinophils # (A) 0.1 k/uL (0-0.7); Eosinophils % (A) 1 %; HCT 35.5 % (34.0-46.0); HGB 11.6 gm/dL (11.4-16.0); Lymphocytes # (A) 0.8 k/uL (1.0-4.8); Lymphocytes % (A) 9 %; MCH 30.5 pg (25.0-35.0); MCHC 32.6 g/dL (31.0-37.0); MCV 93.6 fL (80.0-100.0); Monocytes # (A) 0.5 k/uL (0-1.0); Monocytes % (A) 5 %; Neutrophils # (A) 7.3 k/uL (1.3-7.7); Neutrophils % (A) 82 %; Platelet Count 150 k/uL (150-450); RBC 3.79 m/uL (3.80-5.40); WBC 8.8 k/uL (3.8-10.6)
[2019-01-14 06:06] LABS: ALT 99 U/L (9-52); AST 56 U/L (14-36); African American GFR (CKD) >90 (>60 ml/min/1.73 sqM); Albumin 3.1 g/dL (3.5-5.0); Alkaline Phosphatase 99 U/L (38-126); Anion Gap 6 mmol/L; Bilirubin, Delta 0.4 mg/dL (0.0-0.2); Bilirubin,Unconjugated 0.5 mg/dL (0.0-1.1); Blood Urea Nitrogen 11 mg/dL (7-17); Calcium 8.5 mg/dL (8.4-10.2); Carbon Dioxide 30 mmol/L (22-30); Chloride 102 mmol/L (98-107); Glucose 118 mg/dL (74-99); Non-African American GFR(CKD) 89 (>60 ml/min/1.73 sqM); Potassium 3.8 mmol/L (3.5-5.1); Sodium 138 mmol/L (137-145); Total Bilirubin 0.9 mg/dL (0.2-1.3); Total Protein 5.6 g/dL (6.3-8.2)
[2019-01-14] MEDS: SODIUM CHLORIDE 0.9% 1,000 ML IV SCH ×3 (08:41→20:22)
[2019-01-14] MEDS: FAMOTIDINE 20 MG TAB PO SCH ×2 (08:42→20:22)
[2019-01-14] MEDS: PIPERACILLIN-TAZOBACTAM 3.375 GM in SODIUM CHLORIDE 0.9% 100 ML IVPB SCH ×2 (08:42→15:29)
[2019-01-14] MEDS: IPRATROPIUM 0.5 MG/2.5 ML NEBU INHALATION SCH ×4 (08:43→20:11)
[2019-01-14] MEDS: BETAMETHASONE DIPROPIONATE 0.05% CREAM 15 GM TUBE TOPICAL SCH (08:48)
[2019-01-14] MEDS: CLOTRIMAZOLE/BETAMETH 1-0.05% CREAM 45 GM TUBE TOPICAL SCH (08:48)
--- NOTE | 2019-01-14 10:04 | PN ---
PROGRESS NOTE DATE OF DICTATION: January 14, 2019. REQUESTING PHYSICIAN: Dr. Musa Wakefield. The patient is a 73-year-old pleasant white female admitted to the hospital with severe epigastric and right upper quadrant abdominal pain and low-grade fever/ possible ascending cholangitis on broad-spectrum antibiotics. She has history of recurrent choledocholithiasis. She underwent an ERCP yesterday and was noted to have multiple CBD stones with sludge that were all extracted. She is feeling much better today. She still has some fatigue/weakness, on a clear liquid diet, tolerating well. No nausea, vomiting. PHYSICAL EXAMINATION: She appears comfortable, no apparent distress. VITAL SIGNS: Stable. Blood pressure is 150/80, pulse 98, temperature 98.5. HEENT examination unremarkable. Conjunctivae pink. Sclerae anicteric. Oral cavity no lesions, NECK: No JVD or lymph node enlargement. CHEST: Clear to auscultation. HEART: Regular rate and rhythm. ABDOMEN: Soft. Bowel sounds are positive. Minimal tenderness in the epigastric area. EXTREMITIES: No pedal edema. SKIN: No rashes. NEUROLOGIC: Alert and oriented x3. No focal deficits. LABS: WBC 8.8, hemoglobin 11.6, platelets normal. Basic metabolic panel is within normal limits. ALT and AST decreased to 56 and 99 respectively. T-bilirubin is 0.9. IMPRESSION: 1. Recurrent choledocholithiasis with possible ascending cholangitis on broad-spectrum antibiotics status post ERCP with CBD stone removal yesterday as mentioned above. She is feeling better. 2. Mild epigastric pain. RECOMMENDATIONS: 1. Advance to regular diet. 2. Continue with broad-spectrum antibiotics. 3. If the patient is feeling better, she can be discharged home later today or tomorrow morning. Thank you for this consultation. MMODL / IJN: [id number] /
--- NOTE | 2019-01-14 14:40 | P.PN ---
Subjective Progress Note Date: 01/14/19 Principal diagnosis: Possible ascending cholangitis Recurrent Choledocholithiasis 73-year-old female came in with complaints of right upper quadrant pain severe in/10 in severity up on admission completely resolved now with pain medications. Patient had a cholecystectomy in the past has a cautious bile that and had multiple episodes of stones in the common bile duct which needed intervention. Patient denied any fever chills. Patient is found to have elevated liver enzymes elevated bilirubin KUB x-ray was opted which did not show anything obtain ultrasound of the common bile duct. Patient appears to have choledocholithiasis at this time and gastroneurology was consulted. 01/13/2019 Patient is seen and evaluated in room at bedside; scheduled for ERCP this afternoon Vital signs remained stable with a temperature 97.6, pulse 92, respirations 16 and blood pressure of 116/55 Lab review shows slight elevation in white blood count of 12.9, hemoglobin 11.8 and platelet count of 165; total bilirubin and AST/ALT are trending down slowly Patient is scheduled for ERCP this afternoon for stone removal; we will continue to monitor liver enzymes; patient remains on IV Unasyn 01/14/2019; Patient is seen and evaluated at bedside; patient is status post ERCP with CBD stone extraction; common bile duct was found to be dilated with multiple filling defects; at least 3-4 stones were removed with significant amount of sludge extracted from the common bile duct; patient remains on IV Unasyn, continue for another 24 hours; patient remains afebrile with normal white blood count; patient has been started on diet from clear liquid and advance as tolerated; possible discharge in next 24 hours Objective - Vital Signs Vital signs: Vital Signs Temp 98.5 F 01/14/19 05:00 Pulse 88 01/14/19 08:54 Resp 18 01/14/19 05:00 BP 150/80 01/14/19 05:00 Pulse Ox 93 L 01/14/19 05:00 Intake & Output 01/13/19 01/14/19 01/14/19 18:59 06:59 18:59 Intake Total 1100 600 Balance 1100 600 Intake: IV 500 Intake, IV Titration 600 600 Amount Piperacillin-Tazobactam 3 100 100 .375 gm In Sodium Chloride 0.9% 100 ml @ 25 mls/hr IVPB Q8HR [facility] Rx# :[id number] Sodium Chloride 0.9% 1, 500 500 000 ml @ 125 mls/hr IV . Q8H [facility] Rx#:[id number] Other: Voiding Method Toilet Toilet # Voids 2 - Exam GENERAL: The patient is alert and oriented x3, not in any acute distress. Well developed, well nourished. HEENT: Pupils are round and equally reacting to light. EOMI. No scleral icterus. No conjunctival pallor. Normocephalic, atraumatic. No pharyngeal erythema. No thyromegaly. CARDIOVASCULAR: S1 and S2 present. No murmurs, rubs, or gallops. PULMONARY: Chest is clear to auscultation, no wheezing or crackles. ABDOMEN: Soft, nontender, nondistended, normoactive bowel sounds. No palpable organomegaly. MUSCULOSKELETAL: No joint swelling or deformity. EXTREMITIES: No cyanosis, clubbing, or pedal edema. NEUROLOGICAL: Gross neurological examination did not reveal any focal deficits. SKIN: No rashes. - Labs CBC & Chem 7: 01/14/19 05:05 01/14/19 05:05 Labs: Abnormal Lab Results - Last 24 Hours (Table) 01/13/19 01/14/19 01/14/19 Range/Units 10:06 05:05 05:05 RBC 3.79 L (3.80-5.40) m/uL Lymphocytes # 0.8 L (1.0-4.8) k/uL Carbon Dioxide 32 H (22-30) mmol/L Glucose 109 H 118 H (74-99) mg/dL Total Bilirubin 1.4 H (0.2-1.3) mg/dL Delta Bilirubin 0.4 H (0.0-0.2) mg/dL AST 97 H 56 H (14-36) U/L ALT 141 H 99 H (9-52) U/L Total Protein 5.8 L 5.6 L (6.3-8.2) g/dL Albumin 3.3 L 3.1 L (3.5-5.0) g/dL Assessment and Plan Assessment: - right upper quadrant abdominal pain with elevated liver enzymes possibility of choledocholithiasis is no evidence of ascending cholangitis so far patient will not be started on any antibiotic support to get IV fluids patient was started on diet as I do not anticipate any ERCP today gastroenterology was consulted. Patient will be made nothing by mouth after midnight. -COPD without any acute acceleration - gastroesophageal reflux disease -hyperlipidemia -Hypertension -Hypothyroidism Time with Patient: Greater than 30
--- NOTE | 2019-01-14 15:16 | FL ---
EXAMINATION TYPE: FL ERCP DATE OF EXAM: 01/13/2019 CLINICAL HISTORY: Fluoroscopic documentation during ERCP TECHNIQUE: Fluoroscopy. COMPARISON: None. FINDINGS: Fluoroscopic guidance was provided during procedure performed by Dr. العلي. A total of 2 minutes and 17 seconds of fluoroscopic time was utilized during the procedure and 1 spot images was a cquired during ERCP. IMPRESSION: As Above.
[2019-01-14] MEDS: LEVOTHYROXINE 75 MCG TAB PO SCH (20:22)
[2019-01-15] MEDS: PIPERACILLIN-TAZOBACTAM 3.375 GM in SODIUM CHLORIDE 0.9% 100 ML IVPB SCH ×2 (00:31→08:03)
[2019-01-15] MEDS: SODIUM CHLORIDE 0.9% 1,000 ML IV SCH (04:13)
[2019-01-15 06:49] LABS: ALT 78 U/L (9-52); AST 33 U/L (14-36); African American GFR (CKD) >90 (>60 ml/min/1.73 sqM); Albumin 3.4 g/dL (3.5-5.0); Alkaline Phosphatase 89 U/L (38-126); Anion Gap 5 mmol/L; Bilirubin, Delta 0.3 mg/dL (0.0-0.2); Bilirubin,Unconjugated 0.3 mg/dL (0.0-1.1); Blood Urea Nitrogen 8 mg/dL (7-17); Calcium 8.6 mg/dL (8.4-10.2); Carbon Dioxide 33 mmol/L (22-30); Chloride 103 mmol/L (98-107); Glucose 113 mg/dL (74-99); Non-African American GFR(CKD) >90 (>60 ml/min/1.73 sqM); Potassium 3.5 mmol/L (3.5-5.1); Sodium 141 mmol/L (137-145); Total Bilirubin 0.6 mg/dL (0.2-1.3); Total Protein 6.1 g/dL (6.3-8.2)
[2019-01-15] MEDS: FAMOTIDINE 20 MG TAB PO SCH (08:03)
[2019-01-15] MEDS: BETAMETHASONE DIPROPIONATE 0.05% CREAM 15 GM TUBE TOPICAL SCH (08:04)
[2019-01-15] MEDS: CLOTRIMAZOLE/BETAMETH 1-0.05% CREAM 45 GM TUBE TOPICAL SCH (08:04)
[2019-01-15] MEDS: IPRATROPIUM 0.5 MG/2.5 ML NEBU INHALATION SCH ×2 (08:19→11:51)
--- NOTE | 2019-01-15 10:56 | PN ---
PROGRESS NOTE DATE OF SERVICE: January 15, 2019 REQUESTING PHYSICIAN: Dr. Musa Wakefield. The patient is a 73-year-old pleasant white female admitted to the hospital with acute right upper quadrant abdominal pain and low-grade fever, was noted to have a history of recurrent choledocholithiasis. She underwent an ERCP with CBD stone extraction. She is feeling much better today. Still has some mild right upper quadrant abdominal pain. No fever, chills, night sweats. PHYSICAL EXAMINATION: She appears comfortable. No apparent distress. VITAL SIGNS: Stable. Blood pressure is 131/75, pulse rate is 79, temperature 98.7. HEENT examination unremarkable. Conjunctivae pink. Sclerae anicteric. Oral cavity no lesions. NECK: No JVD or lymph node enlargement. Chest was clear to auscultation. HEART: Regular rate and rhythm. ABDOMEN: Soft. Mild tenderness in the right upper quadrant area. The rest of the abdomen is benign. Extremities: No pedal edema. Skin no rashes. NEUROLOGIC: Alert and oriented x3. No focal deficits. LABS: From today AST and ALT are 33 and 78 respectively. T-bilirubin and alkaline phosphatase are normal. IMPRESSION: 1. Recurrent choledocholithiasis status post ERCP with CBD stone removal 2 days ago. 2. Low-grade fever and mild leukocytosis, possible ascending cholangitis on broad- spectrum antibiotics doing well. RECOMMENDATIONS: 1. Advance diet. 2. She can be discharged home today with outpatient followup in 2-3 weeks. 3. Continue with Actigall 300 mg twice daily. Thank you for this consultation. MMODL / IJN: [id number] /
[2019-01-15 11:31] VITALS: BP 152/89; RESP 17; TEMP 98.6
[2019-01-15 12:03] VITALS: PULSE 84
== END 2019-01-15 14:42 | disposition home or self-care (01) | DRG 445 ==
LOC: EC 10:51 → 3NMEDONC 13:05 → OBSVTOIN 01-15 08:55
PROVIDERS: ADMIT Hospitalist; ATTEND Hospitalist
DX: K80.30 Calculus of bile duct with cholangitis, unspecified, without obstruction (principal); K51.90 Ulcerative colitis, unspecified, without complications; J44.9 Chronic obstructive pulmonary disease, unspecified; D72.829 Elevated white blood cell count, unspecified; K21.9 Gastro-esophageal reflux disease without esophagitis; E78.5 Hyperlipidemia, unspecified; I10 Essential (primary) hypertension; E03.9 Hypothyroidism, unspecified; M19.90 Unspecified osteoarthritis, unspecified site; L98.9 Disorder of the skin and subcutaneous tissue, unspecified; Z79.890 Hormone replacement therapy; Z79.899 Other long term (current) drug therapy; Z87.891 Personal history of nicotine dependence; Z90.49 Acquired absence of other specified parts of digestive tract; Z96.651 Presence of right artificial knee joint; Z90.710 Acquired absence of both cervix and uterus; Z98.890 Other specified postprocedural states; Z88.6 Allergy status to analgesic agent; Z88.5 Allergy status to narcotic agent; Z80.9 Family history of malignant neoplasm, unspecified
CPT/HCPCS: 36415; 43264; 43277; 74018; 74330; 76705; 80053; 81003; 82150; 82248; 82550; 83690; 84484; 85025; 94640; 94760; 96361; 96374; 99285

== ENCOUNTER 2020-07-19 12:45 | Day surgery (SDC) | payer MEDICARE ==
[2020-07-16 16:16] VITALS: BMI 42.9
[2020-07-19] MEDS ORDERED: LEVOFLOXACIN 500MG-D5W PMX 500 MG in DEXTROSE/WATER 1 100ML.BAG IVPB STA (12:51)
[2020-07-19] MEDS: LACTATED RINGERS 1,000 ML IV SCH ×2 (13:58→14:14)
[2020-07-19 14:05] VITALS: TEMP 98.6
[2020-07-19] MEDS ORDERED: PROPOFOL 10 MG/ML 20 ML VIAL IV ONE (14:17)
[2020-07-19] MEDS ORDERED: LIDOCAINE 1% INJ 10MG/ML (20 ML MDV) ONE (14:17)
[2020-07-19] MEDS ORDERED: GLYCOPYRROLATE 0.2 MG/ML 2 ML VIAL ONE (14:17)
[2020-07-19] MEDS ORDERED: KETAMINE 10 MG/ML 20 ML VIAL ONE (14:17)
[2020-07-19] MEDS ORDERED: MIDAZOLAM 2 MG/2 ML VIAL ONE (14:17)
[2020-07-19] MEDS ORDERED: fentaNYL (PF) 50 MCG/ML 2 ML AMP ONE (14:17)
[2020-07-19 14:18] LABS: Basophils # (A) 0.1 k/uL (0-0.2); Basophils % (A) 1 %; Eosinophils # (A) 0.2 k/uL (0-0.7); Eosinophils % (A) 2 %; HCT 43.5 % (34.0-46.0); HGB 14.4 gm/dL (11.4-16.0); Lymphocytes # (A) 1.9 k/uL (1.0-4.8); Lymphocytes % (A) 24 %; MCH 30.3 pg (25.0-35.0); MCHC 33.1 g/dL (31.0-37.0); MCV 91.4 fL (80.0-100.0); Mean Platelet Volume 8.2; Monocytes # (A) 0.6 k/uL (0-1.0); Monocytes % (A) 7 %; Neutrophils # (A) 4.9 k/uL (1.3-7.7); Neutrophils % (A) 63 %; Platelet Count 262 k/uL (150-450); RBC 4.76 m/uL (3.80-5.40); RDW 12.9 % (11.5-15.5); WBC 7.8 k/uL (3.8-10.6)
[2020-07-19 14:30] LABS: ALT 25 U/L (4-34); AST 35 U/L (14-36); African American GFR (CKD) >90 (>60 ml/min/1.73 sqM); Albumin 4.6 g/dL (3.5-5.0); Alkaline Phosphatase 77 U/L (38-126); Anion Gap 8 mmol/L; Blood Urea Nitrogen 19 mg/dL (7-17); Calcium 9.7 mg/dL (8.4-10.2); Carbon Dioxide 31 mmol/L (22-30); Chloride 102 mmol/L (98-107); Glucose 109 mg/dL (74-99); Non-African American GFR(CKD) >90 (>60 ml/min/1.73 sqM); Potassium 4.2 mmol/L (3.5-5.1); Sodium 141 mmol/L (137-145); Total Bilirubin 0.7 mg/dL (0.2-1.3); Total Protein 7.2 g/dL (6.3-8.2)
[2020-07-19] MEDS ORDERED: IOPAMIDOL-300 50ML BTL MISCELLANE ONE (14:35)
[2020-07-19 14:37] LABS: INR 0.9 (<1.2)
--- NOTE | 2020-07-19 14:53 | P.PCN ---
Date of Procedure: 07/19/20 Procedure(s) Performed: Brief history: Patient is a 74 year-old pleasant lady scheduled for an ERCP as part of evaluation of right upper quadrant abdominal pain for the last 2 weeks' duration. She has history of recurrent CBD stones and underwent multiple ERCPs the last t ERCP was done in December 2018 and multiple CVA stones were extracted. Procedure performed: ERCP with balloon sweep Preoperative diagnoses: Right upper quadrant abdominal pain of 2 weeks' duration and recurrent choledocholithiasis IV sedation per anesthesia: Procedure: After informed consent was obtained from the patient and after the risks benefits and complications including bleeding perforation and pancreatitis explained in detail the patient was brought into the endoscopy unit. The patient was placed in prone position and IV conscious sedation was administered by anesthesia under continuous monitoring. The Olympus side-viewing duodenoscope was then inserted into the mouth and esophagus intubated without any difficulty. The scope was gradually advanced into the stomach and duodenum. The major papilla was identified with some difficulty. There was evidence of previous biliary sphincterotomy noted. This was widely patent. The common bile was cannulated without any difficulty using the tapered-tip catheter and upon injection of the right appeared dilated measuring 2 cm in diameter and no obvious filling defects were identified. At this time I passed the 15 mm balloon into the proximal common bile duct and gently inflated and withdrawn and did not see any stones exiting the ampulla. This maneuver was repeated several times and no stones were seen exiting the ampulla. At this time the procedure was terminated and the patient tolerated the procedure well. The pancreatic duct was intentionally not cannulated. Impression: Dilated common bile duct measuring 2 cm in diameter with no filling defects status post balloon sweep and no stones seen exiting the ampulla Patent biliary sphincterotomy site Pancreatic duct intentionally not cannulated Recommendations: The findings of this examination were discussed with the patient as well as a family. She was advised to follow up in office in 2-3 weeks.
[2020-07-19 15:06] VITALS: RESP 16
--- NOTE | 2020-07-19 15:24 | FL ---
Fluoroscopy HISTORY:: Bile duct stricture 54 seconds fluoroscopy time supplied to the referring clinician. 2 intraoperative C-arm images docum ent the procedure. See dictated report from gastroenterology.
[2020-07-19 16:12] VITALS: BP 115/75; PULSE 81
== END 2020-07-19 16:16 | disposition home or self-care (01) ==
LOC: ORWHC2ENDO 12:45
PROVIDERS: ATTEND Internal Medicine Gastroenterology
DX: K83.1 Obstruction of bile duct (principal); Q44.5 Other congenital malformations of bile ducts; I10 Essential (primary) hypertension; E78.5 Hyperlipidemia, unspecified; J44.9 Chronic obstructive pulmonary disease, unspecified; Z86.73 Personal history of transient ischemic attack (TIA), and cerebral infarction without residual deficits; K21.9 Gastro-esophageal reflux disease without esophagitis; Z79.890 Hormone replacement therapy; Z98.890 Other specified postprocedural states; Z88.6 Allergy status to analgesic agent; Z79.899 Other long term (current) drug therapy; Z88.5 Allergy status to narcotic agent
CPT/HCPCS: 43277; 80053; 85025; 85610; 74330; J2250; J2001; J3010; J2704; Q9967; 43260

== ENCOUNTER 2021-06-20 11:15 | Day surgery (SDC) | payer MEDICARE ==
[~2021-06-20 11:15] MED LIST changes: -LIDOCAINE 1% 20 ML VIAL (10MG/ML) FOR IV START INTRADERMA PRN
[2021-06-20 11:47] VITALS: TEMP 98.9
[2021-06-20] MEDS ORDERED: LEVOFLOXACIN 500MG-D5W PMX 500 MG in DEXTROSE/WATER 1 100ML.BAG IVPB STA (11:56)
[2021-06-20 12:18] LABS: Basophils % (A) 1 %; Eosinophils # (A) 0.1 k/uL (0-0.7); Eosinophils % (A) 1 %; HCT 40.8 % (34.0-46.0); HGB 13.6 gm/dL (11.4-16.0); Lymphocytes # (A) 1.2 k/uL (1.0-4.8); Lymphocytes % (A) 14 %; MCHC 33.3 g/dL (31.0-37.0); MCV 93.1 fL (80.0-100.0); Mean Platelet Volume 8.1; Monocytes # (A) 0.7 k/uL (0-1.0); Monocytes % (A) 8 %; Neutrophils # (A) 6.4 k/uL (1.3-7.7); Neutrophils % (A) 72 %; Platelet Count 292 k/uL (150-450); RBC 4.39 m/uL (3.80-5.40); WBC 8.9 k/uL (3.8-10.6)
[2021-06-20 12:40] LABS: ALT 28 U/L (4-34); AST 28 U/L (14-36); African American GFR (CKD) >90 (>60 ml/min/1.73 sqM); Alkaline Phosphatase 113 U/L (38-126); Anion Gap 10 mmol/L; Blood Urea Nitrogen 17 mg/dL (7-17); Calcium 9.3 mg/dL (8.4-10.2); Carbon Dioxide 31 mmol/L (22-30); Chloride 97 mmol/L (98-107); Glucose 116 mg/dL (74-99); Non-African American GFR(CKD) >90 (>60 ml/min/1.73 sqM); Potassium 4.2 mmol/L (3.5-5.1); Sodium 138 mmol/L (137-145); Total Bilirubin 1.2 mg/dL (0.2-1.3); Total Protein 7.2 g/dL (6.3-8.2)
[2021-06-20] MEDS ORDERED: PROPOFOL 10 MG/ML 20 ML VIAL IV ONE (13:46)
[2021-06-20] MEDS ORDERED: LIDOCAINE 1% INJ 10MG/ML (20 ML MDV) ONE (13:46)
[2021-06-20] MEDS ORDERED: KETAMINE 10 MG/ML 20 ML VIAL ONE (13:46)
[2021-06-20] MEDS ORDERED: MIDAZOLAM 2 MG/2 ML VIAL ONE (13:46)
[2021-06-20] MEDS ORDERED: IOPAMIDOL-300 50ML BTL INJ ONE (14:29)
--- NOTE | 2021-06-20 14:33 | P.PCN ---
Date of Procedure: 06/20/21 Procedure(s) Performed: Brief history: Patient is a 75 year-old pleasant lady scheduled for an ERCP as part of evaluation of intermittent episodes of epigastric pain and right upper quadrant abdominal pain for the last 6 weeks duration. Patient had history of choledocholithiasis and underwent several ERCPs in the past the last one was in June 2020 for retained common bile duct stone. For the last 6 weeks she is been having intermittent episodes of painless lasted about 4-5 hours but 3 years ago she had severe pain associated with low-grade fever and chills. She isn't scheduled for ERCP and clinical suspicion for retained common bile Procedure performed: ERCP with CBD stone extraction Preoperative diagnoses: Epigastric pain and history of choledocholithiasis IV sedation per anesthesia: Procedure: After informed consent was obtained from the patient and after the risks benefits and complications including bleeding perforation and pancreatitis explained in detail the patient was brought into the endoscopy unit. The patient was placed in prone position and IV conscious sedation was administered by anesthesia under continuous monitoring. The Olympus side-viewing duodenoscope was then inserted into the mouth and esophagus intubated without any difficulty. The scope was gradually advanced into the stomach and duodenum. Duodenal diverticulum identified. The major papilla was identified with difficulty. Initial cannulation with a taper-tip catheter resulted in opacification of the common bile duct and biliary sphincterotomy was patent. The common bile duct appeared dilated measuring 2 cm in diameter and there were 2 large filling defects identified in the proximal and mid CBD. Distal 15 mm balloon was passed into the common bile duct gently inflated and withdrawn and there was significant amount of sludge and 2 large stones exiting the ampulla. Occlusion cholangiogram was performed and no other filling defects were identified and this time the procedure was terminated and the patient tolerated the procedure well. Enteric duct was intentionally not cannulated. Impression: Dilated common bile duct measuring 2 cm in diameter with 2 large filling defects noted, status post balloon stone extraction as described above Extraction of CBD sludge with a balloon catheter Large duodenal diverticulum Recommendations: The findings of this examination were discussed with the patient as well as a family. She will be on a clear liquid diet today. Follow- up in office in 3-4 weeks.
--- NOTE | 2021-06-20 14:48 | FL ---
EXAMINATION TYPE: FL ERCP HISTORY: Fluoroscopy time Impression: 1. Fluoroscopy support provided to the referring physician.
[2021-06-20 15:08] VITALS: BP 106/62; PULSE 86; RESP 15
== END 2021-06-20 15:28 | disposition home or self-care (01) ==
LOC: ORWHC2ENDO 11:15
PROVIDERS: ATTEND Internal Medicine Gastroenterology
DX: K57.10 Diverticulosis of small intestine without perforation or abscess without bleeding (principal); K83.8 Other specified diseases of biliary tract
CPT/HCPCS: 43264; 80053; 85025; 85610; 85730; 74330; J2250; J1956; J2001; J2704; Q9967

== ENCOUNTER 2021-11-22 15:09 | Emergency (ER) | payer MEDICARE ==
[2021-11-22] MEDS ORDERED: LIDOCAINE 1%-EPI 1:100,000 20 ML VIAL SQ STA (16:10)
--- NOTE | 2021-11-22 16:16 | ED ---
General Adult HPI - General Chief complaint: Skin/Abscess/Foreign Body Stated complaint: Sore on hand and R foot Time Seen by Provider: 11/22/21 15:26 Source: patient Mode of arrival: ambulatory Limitations: no limitations - History of Present Illness Initial comments: Dictation was produced using [employer] dictation software. please excuse any gramma tical, word or spelling errors. Chief Complaint: 76-year-old female presents with extremity rash History of Present Illness: To 76-year-old female presents to the emergency Department with extremity rash. 7 days ago she noticed a rash pop up over her right wrist. She was seen at orthopedic surgery's office. They tani a fluid collection sample. Allegedly this fluid sample was sent for testing. So unclear what this fluid testing was sent for. Patient states that it's pain read to that site. She was put on steroids and antibiotics. Patient is given Bactrim. She saw Dr. De La Paz for this. Patient today felt like her symptoms not improving prompting her to come to the emergency department. Patient also has a another area of redness over the left medial malleolus. She states that it's also painful. The ROS documented in this emergency department record has been reviewed and confirmed by me. Those systems with pertinent positive or negative responses have been documented in the HPI. All other systems are other negative and/or noncontributory. PHYSICAL EXAM: General Impression: Alert and oriented x3, not in acute distress HEENT: Normocephalic atraumatic, extra-ocular movements intact, pupils equal and reactive to light bilaterally, mucous membranes moist. Cardiovascular: Heart regular rate and rhythm Chest: Able to complete full sentences, no retractions, no tachypnea Musculoskeletal: Pulses present and equal in all extremities, no peripheral edema Motor: no focal deficits noted Neurological: CN II-XII grossly intact, no focal motor or sensory deficits noted Skin: Intact with no visualized rashes, cellulitic changes over the medial malleolus Right wrist: There is a fluctuant erythematous painful and warm blanching area over the dorsum of the wrist. [id number] bedside ultrasound shows heterogeneous fluid collection. There is concerns of soft tissue abscess with surrounding cellulitis. Psych: Normal affect and mood ED course: 76-year-old female presents emergency department for right upper extremity abscess. Vital Signs upon arrival are within acceptable limits. There is heterogeneous material seen in a relatively anechoic space. Needle aspiration was performed. There was not any purulent drainage removed. Likely that collection is thick and caseous unable to be aspirated. Patient prescription for Keflex. He is told to complete her Bactrim prescription. Advised follow-up with Dr. De La Paz. - Related Data Home Medications Medication Instructions Recorded Confirmed Albuterol Inhaler [Ventolin Hfa 2 puff INHALATION RT-Q6H PRN 11/07/15 06/20/21 Inhaler] Ascorbic Acid [Vitamin C] 500 mg PO DAILY 11/07/15 06/20/21 Fish Oil/Dha/Epa [Fish Oil 1,200 1 cap PO DAILY 11/07/15 06/20/21 mg Fish Oil] Lisinopril [Prinivil] 5 mg PO QAM 11/07/15 06/20/21 Multivitamins, Thera [Multivitamin 1 tab PO DAILY 11/07/15 06/20/21 (formulary)] Omeprazole 20 mg PO BID 11/07/15 06/20/21 Simvastatin [Zocor] 40 mg PO HS 11/07/15 06/20/21 Vitamin E (Dl,Tocopheryl Acet) 800 unit PO DAILY 11/07/15 06/20/21 [Vitamin E (400 Iu = 180 mg)] ursodioL [Davy] 250 mg PO TID-W/MEALS 11/07/15 06/20/21 Betamethasone Dipropionate 1 applic TOPICAL BID PRN 09/14/16 06/20/21 [Diprolene AF 0.05% Cream] Cholecalciferol [Vitamin D3 (25 5,000 unit PO DAILY 01/12/19 06/20/21 Mcg = 1000 Iu)] Levothyroxine Sodium [Synthroid] 75 mcg PO HS 01/12/19 06/20/21 Tiotropium [place] [Spiriva 2 puff INHALATION QAM 01/12/19 06/20/21 Respimat] Hydrocortisone Cream 1 applic TOPICAL BID PRN 07/16/20 06/20/21 [Hydrocortisone 2.5% Cream] Nystatin 100,000 Unit/gm Oint 1 applic TOPICAL DAILY 07/16/20 06/20/21 [Mycostatin Oint] Hydrocortisone Cream 1 applic TOPICAL BID PRN 06/19/21 06/20/21 [Hydrocortisone 1% Cream] Previous Rx's Medication Instructions Recorded Cephalexin [Keflex] 500 mg PO Q6HR 5 Days #20 cap 11/22/21 Allergies Allergy/AdvReac Type Severity Reaction Status Date / Time ibuprofen Allergy Severe Nausea Verified 11/22/21 15:16 codeine Allergy Intermediate Nausea Verified 11/22/21 15:16 Review of Systems ROS Statement: Those systems with pertinent positive or pertinent negative responses have been documented in the HPI. ROS Other: All systems not noted in ROS Statement are negative. Past Medical History Past Medical History: COPD, GERD/Reflux, Hyperlipidemia, Hypertension, Osteoarthritis (OA), Skin Disorder, Thyroid Disorder Additional Past Medical History / Comment(s): CHRONIC BILE STONES (GALL BLADDER REMOVED, HOWEVER YOSSI DUCT CURVED AND BODY CONTINUES TO ACCUMULATE SLUDGE/STONE). Hx Ulcerative Colitis, Hypothyroidism. RASH UNDER BREAST/ABD FOLDS. RASH ONE HANDS AND ARMS. History of Any Multi-Drug Resistant Organisms: None Reported Past Surgical History: Breast Surgery, Cholecystectomy, Hysterectomy, Joint Replacement, Tonsillectomy Additional Past Surgical History / Comment(s): Right knee replacement, cyst removed from back, right breast biopsy, numerous ERCP's. Past Anesthesia/Blood Transfusion Reactions: No Reported Reaction, Motion Sickness Past Psychological History: No Psychological Hx Reported Smoking Status: Former smoker Past Alcohol Use History: Occasional Past Drug Use History: None Reported - Past Family History Mother Family Medical History: Cancer General Exam Limitations: no limitations Course Vital Signs 11/22/21 15:11 Temperature 97.9 F Pulse Rate 87 Respiratory 16 Rate Blood Pressure 148/75 O2 Sat by Pulse 96 Oximetry Procedures - Incision & Drainage Consent Obtained: verbal consent Site: other (wrist) Anesthetic Used: lidocaine 1% Needle Aspiration Performed?: Yes Irrigation Performed?: No I&D Drainage Obtained: Serous Culture Obtained?: Yes Patient Tolerated Procedure: well Disposition Clinical Impression: Cellulitis Disposition: HOME SELF-CARE Condition: Good Instructions (If sedation given, give patient instructions): Cellulitis (ED) Prescriptions: Cephalexin [Keflex] 500 mg PO Q6HR 5 Days #20 cap Is patient prescribed a controlled substance at d/c from ED?: No Referrals: Misha De La Paz MD [STAFF PHYSICIAN] - 1-2 days
[2021-11-22 17:32] VITALS: BP 136/78; PULSE 88; RESP 18; TEMP 98.8
== END 2021-11-22 17:31 | disposition home or self-care (01) ==
LOC: EC 15:09
DX: L03.90 Cellulitis, unspecified (principal); J44.9 Chronic obstructive pulmonary disease, unspecified; K21.9 Gastro-esophageal reflux disease without esophagitis; E78.5 Hyperlipidemia, unspecified; M19.90 Unspecified osteoarthritis, unspecified site; E03.9 Hypothyroidism, unspecified; Z87.891 Personal history of nicotine dependence; Z88.6 Allergy status to analgesic agent; Z88.5 Allergy status to narcotic agent; Z79.51 Long term (current) use of inhaled steroids; Z79.890 Hormone replacement therapy; Z79.899 Other long term (current) drug therapy
CPT/HCPCS: 10060; 87070; 87075; 87205; 99282

== ENCOUNTER 2023-05-26 09:33 | Day surgery (SDC) | payer MEDICARE ==
[2023-05-25 09:22] VITALS: BMI 39.9
[2023-05-26] MEDS ORDERED: INDOMETHACIN 100 MG SUPPOSITORY RECTAL ONE (11:16)
[2023-05-26] MEDS: LACTATED RINGERS 1,000 ML IV SCH (12:04)
[2023-05-26] MEDS: LEVOFLOXACIN 500MG-D5W PMX 500 MG in DEXTROSE/WATER 1 100ML.BAG IVPB STA (12:09)
[2023-05-26 12:35] LABS: Prothrombin Time 11.3 sec (10.0-12.5)
[2023-05-26] MEDS ORDERED: ONDANSETRON 4 MG/2 ML VIAL ONE (12:37)
[2023-05-26] MEDS: DEXAMETHASONE SOD PHOSPHATE 4 MG/ML 1 ML VIAL IVP ONE ×2 (12:40)
[2023-05-26] MEDS: ONDANSETRON 4 MG/2 ML VIAL IVP ONE ×2 (12:40)
[2023-05-26 12:44] LABS: ALT 28 U/L (4-34); AST 28 U/L (14-36); African American GFR (CKD) >90 (>60 ml/min/1.73 sqM); Albumin 4.1 g/dL (3.5-5.0); Alkaline Phosphatase 93 U/L (38-126); Anion Gap 9 mmol/L; Blood Urea Nitrogen 12 mg/dL (7-17); Calcium 9.5 mg/dL (8.4-10.2); Carbon Dioxide 30 mmol/L (22-30); Chloride 98 mmol/L (98-107); Glucose 120 mg/dL (74-99); Non-African American GFR(CKD) >90 (>60 ml/min/1.73 sqM); Potassium 4.3 mmol/L (3.5-5.1); Sodium 137 mmol/L (137-145); Total Bilirubin 0.9 mg/dL (0.2-1.3); Total Protein 6.9 g/dL (6.3-8.2)
[2023-05-26] MEDS ORDERED: SUCCINYLCHOLINE CHLORIDE 200 MG/10 ML VIAL IV ONE (12:50)
[2023-05-26] MEDS ORDERED: NEOSTIGMINE 1 MG/ML 10 ML VIAL ONE (12:50)
[2023-05-26] MEDS ORDERED: PROPOFOL 10 MG/ML 20 ML VIAL IV ONE (12:50)
[2023-05-26] MEDS ORDERED: GLYCOPYRROLATE 0.2 MG/ML 2 ML VIAL ONE (12:50)
[2023-05-26] MEDS ORDERED: ROCURONIUM 10 MG/ML (5 ML VIAL) IV ONE (12:50)
[2023-05-26] MEDS ORDERED: LIDOCAINE 1% INJ 10MG/ML (20 ML MDV) ONE (12:50)
[2023-05-26 12:51] LABS: HCT 41.8 % (34.0-46.0); HGB 13.5 gm/dL (11.4-16.0); MCHC 32.2 g/dL (31.0-37.0); MCV 93.2 fL (80.0-100.0); Mean Platelet Volume 8.7; Platelet Count 217 k/uL (150-450); RBC 4.48 m/uL (3.80-5.40); RDW 12.7 % (11.5-15.5)
[2023-05-26 13:18] LABS: Eosinophils # (M) 0.07 k/uL (0-0.7); Lymphocytes # (M) 1.19 k/uL (1.0-4.8); Monocytes # (M) 0.91 k/uL (0-1.0); Neutrophils # (M) 4.83 k/uL (1.3-7.7); Neutrophils % (M) 69 %; Nucleated Red Blood Cells 0 /100 WBC (0-0); RBC Morphology Normal; Total Cells Counted 100
[2023-05-26] MEDS: IOPAMIDOL-300 30ML BTL INJ ONE (13:29)
--- NOTE | 2023-05-26 13:31 | P.PCN ---
Date of Procedure: 05/26/23 Procedure(s) Performed: Brief history: Patient is a 77 year-old pleasant lady scheduled for an ERCP as part of evaluation of epigastric abdominal pain for the last 4 days duration. She has history of recurrent choledocholithiasis and multiple ERCPs in the past the last one was in May 2021 for CBD stone extraction. Procedure performed: ERCP with CBD stone extraction Preoperative diagnoses: Epigastric pain for the last 4 days duration and history of recurrent CBD stones IV sedation per anesthesia: Procedure: After informed consent was obtained from the patient and after the risks benefits and complications including bleeding perforation and pancreatitis explained in detail the patient was brought into the endoscopy unit. The patient was placed in prone position and IV conscious sedation was administered by anesthesia under continuous monitoring. The Olympus side-viewing duodenoscope was then inserted into the mouth and esophagus intubated without any difficulty. The scope was gradually advanced into the stomach and duodenum. The major papilla was identified with mild difficulty. Initial cannulation of the common bile duct revealed a patent sphincterotomy site. The CBD appeared dilated measuring 2 cm with multiple filling defects noted. At this time the 11 mm balloon was passed over the guidewire into the distal CBD and gently inflated and withdrawn and multiple stones were extracted and this maneuver was repeated several times. Total of 7 stones were extracted with significant amount of sludge. Finally a balloon occlusion cholangio-Dima was performed and no other filling defects were seen and the patient tolerated the procedure well. The pancreatic duct was intentionally not cannulated. There was a duodenal diverticulum also identified. Patient tolerated the procedure well. Impression: Dilated CBD measuring at least 2 cm in diameter with multiple filling defects measuring between 7 mm to 1 cm in size status post status post balloon stone extraction almost 7 stones extracted with significant amount of sludge Patent biliary sphincterotomy Pancreatic duct not cannulated Recommendations: The findings of this examination were discussed with the patient as well as a family. She was advised to remain on clear liquids for lunch today. Follow up in office in 2 weeks.
--- NOTE | 2023-05-26 13:55 | FL ---
EXAMINATION TYPE: FL ERCP HISTORY: Fluoroscopy time Impression: 1. Fluoroscopy support provided to the referring physician.
[2023-05-26 14:02] VITALS: RESP 16; TEMP 97.2
[2023-05-26] MEDS ORDERED: IPRATROPIUM-ALBUTEROL 3 ML NEB ONE (14:03)
[2023-05-26] MEDS: IPRATROPIUM-ALBUTEROL 3 ML NEB INHALATION STA (14:08)
[2023-05-26 14:39] VITALS: BP 123/78; PULSE 86
== END 2023-05-26 15:08 | disposition home or self-care (01) ==
LOC: ORWHC2ENDO 09:33
PROVIDERS: ATTEND Internal Medicine Gastroenterology
DX: K83.8 Other specified diseases of biliary tract (principal); I10 Essential (primary) hypertension; E78.5 Hyperlipidemia, unspecified; J44.9 Chronic obstructive pulmonary disease, unspecified; E07.9 Disorder of thyroid, unspecified; K21.9 Gastro-esophageal reflux disease without esophagitis; Z87.891 Personal history of nicotine dependence; Z79.51 Long term (current) use of inhaled steroids; Z79.890 Hormone replacement therapy; Z79.899 Other long term (current) drug therapy; Z88.5 Allergy status to narcotic agent; Z88.8 Allergy status to other drugs, medicaments and biological substances
CPT/HCPCS: 80053; 85025; 85610; 74330; 43264; J0330; J1100; J2710; J2405; J1956; J2001; J2704; 43260

== ENCOUNTER 2023-09-12 14:37 | Observation (INO) | payer MEDICARE ==
[2023-09-12] MEDS ORDERED: HYDROmorphone 1 MG/ML 1 ML SYRINGE IVP PRN (15:16)
--- NOTE | 2023-09-12 15:17 | ED ---
Recheck HPI - General Chief Complaint: Recheck/Abnormal Lab/Rx Stated Complaint: bile stones abd pain Time Seen by Provider: 09/12/23 15:02 Source: patient, RN notes reviewed, old records reviewed Mode of arrival: ambulatory Limitations: no limitations - History of Present Illness Initial Comments: This is a 78-year-old female to the ER for evaluation abdominal pain severe abdominal pain with biliary disease, biliary dyskinesia and gallbladder bile du ct issues with gallstone issues. Patient presents speak with Dr. Joseph to coming to the ER for admission and reevaluation MD Complaint: abnormal lab -: days(s) Returns Today for: Called Because of Abnormal Lab/Test Symptoms Since Prior Visit: worsening pain Context: planned re-check Associated Symptoms: none Treatments Prior to Arrival: Given Pain Meds on - Related Data Home Medications Medication Instructions Recorded Confirmed Albuterol Inhaler [Ventolin Hfa 2 puff INHALATION RT-Q6H PRN 11/07/15 09/12/23 Inhaler] Lisinopril [Prinivil] 5 mg PO DAILY 11/07/15 09/12/23 Omeprazole 20 mg PO BID 11/07/15 09/12/23 Simvastatin [Zocor] 40 mg PO DAILY 11/07/15 09/12/23 Levothyroxine Sodium [Synthroid] 75 mcg PO DAILY 01/12/19 09/12/23 Nystatin 100,000 Unit/gm Oint 1 applic TOPICAL BID 07/16/20 09/12/23 [Mycostatin Oint] Furosemide [Lasix] 20 mg PO DAILY 09/12/23 09/12/23 Tiotropium 2.5 Mcg/Puff [Spiriva 2 puff INHALATION RT-DAILY 09/12/23 09/12/23 Respimat 2.5 Mcg] ursodioL [Ursodiol] 500 mg PO BID-W/MEALS 09/12/23 09/12/23 Allergies Allergy/AdvReac Type Severity Reaction Status Date / Time ibuprofen Allergy Severe Nausea Verified 09/12/23 15:00 codeine Allergy Intermediate Nausea Verified 09/12/23 15:00 Review of Systems ROS Statement: Those systems with pertinent positive or pertinent negative responses have been documented in the HPI. ROS Other: All systems not noted in ROS Statement are negative. Past Medical History Past Medical History: COPD, GERD/Reflux, Hyperlipidemia, Hypertension, Osteoar thritis (OA), Skin Disorder, Thyroid Disorder Additional Past Medical History / Comment(s): CHRONIC BILE STONES (GALL BLADDER REMOVED, HOWEVER YOSSI DUCT CURVED AND BODY CONTINUES TO ACCUMULATE SLUDGE/STONE). Hx Ulcerative Colitis, Hypothyroidism. RASH UNDER BREAST/ABD FOLDS. RASH ONE HANDS AND ARMS. History of Any Multi-Drug Resistant Organisms: None Reported Past Surgical History: Breast Surgery, Cholecystectomy, Hysterectomy, Joint Replacement, Tonsillectomy Additional Past Surgical History / Comment(s): Right knee replacement, cyst removed from back, right breast biopsy, numerous ERCP's. Past Anesthesia/Blood Transfusion Reactions: No Reported Reaction, Motion S ickness Past Psychological History: No Psychological Hx Reported Smoking Status: Former smoker Past Alcohol Use History: Rare Past Drug Use History: None Reported - Past Family History Mother Family Medical History: Cancer Additional Family Medical History / Comment(s): Breast General Exam Limitations: no limitations General appearance: alert, in no apparent distress, anxious Head exam: Present: atraumatic, normocephalic, normal inspection Eye exam: Present: normal appearance, PERRL, EOMI. Absent: scleral icterus, conjunctival injection, periorbital swelling ENT exam: Present: normal exam, mucous membranes moist Neck exam: Present: normal inspection. Absent: tenderness, meningismus, lymphadenopathy Respiratory exam: Present: normal lung sounds bilaterally. Absent: respiratory distress, wheezes, rales, rhonchi, stridor Cardiovascular Exam: Present: regular rate, normal rhythm, normal heart sounds. Absent: systolic murmur, diastolic murmur, rubs, gallop, clicks GI/Abdominal exam: Present: soft, tenderness, normal bowel sounds. Absent: distended, guarding, rebound, rigid Extremities exam: Present: normal inspection, full ROM, normal capillary refill. Absent: tenderness, pedal edema, joint swelling, calf tenderness Back exam: Present: normal inspection Neurological exam: Present: alert, oriented X3, CN II-XII intact Psychiatric exam: Present: normal affect, normal mood Skin exam: Present: warm, dry, intact, normal color. Absent: rash Course Vital Signs 09/12/23 09/12/23 14:58 20:00 Temperature 98 F 98.1 F Pulse Rate 93 Pulse Rate [ 103 H Pulse Oximetery ] Respiratory 20 20 Rate Blood Pressure 152/83 Blood Pressure 150/78 [Right Arm] O2 Sat by Pulse 99 88 L Oximetry - Reevaluation(s) Reevaluation #1: 09/12/23 15:46 Records reviewed Reevaluation #2: 09/12/23 15:46 Patient symptoms unchanged, improving Reevaluation #3: 09/12/23 15:46 Patient informed of results questions answered Reevaluation #4: Was pt. sent in by a medical professional or institution (, [facility], INCOMING FREIGHT CLERK, urgent care, hospital, or [facility]...) When possible be specific @ -no Did you speak to anyone other than the patient for history (EMS, parent, family, police, friend...)? What history was obtained from this source @ -no Did you review nursing and triage notes (agree or disagree)? Why? @ -agree Are old charts reviewed (outside hosp., previous admission, EMS record, old EKG, old radiological studies, urgent care reports/EKG's, [facility] records)? Report findings @ -yes Differential Diagnosis (chest pain, altered mental status, abdominal pain women, abdominal pain men, vaginal bleeding, weakness, fever, dyspnea, syncope, head ache, dizziness, GI bleed, back pain, seizure, CVA, palpatations, mental health, musculoskeletal)? @ -prior EKG interpreted by me (3pts min.). @ -yes X-rays interpreted by me (1pt min.). @ -no CT interpreted by me (1pt min.). @ -no U/S interpreted by me (1pt. min.). @ -no What testing was considered but not performed or refused? (CT, X-rays, U/S, labs)? Why? @ -none What meds were considered but not given or refused? Why? @ -none Did you discuss the management of the patient with other professionals (professionals i.e. [facility] Arriaga, INCOMING FREIGHT CLERK, lab, RT, psych nurse, social media marketing analyst, agricultural plow operator, teacher, security public safety officer, complex case manager)? Give summary @ -no Was smoking cessation discussed for >3mins.? @ -no Was critical care preformed (if so, how long)? @ -no Were there social determinants of health that impacted care today? How? (Homelessness, low income, unemployed, alcoholism, drug addiction, guadarrama sportation, low edu. Level, literacy, decrease access to med. care, [facility], rehab)? @ -none Was there de-escalation of care discussed even if they declined (Discuss DNR or withdrawal of care, Hospice)? DNR status @ -no What co-morbidities impacted this encounter? (DM, HTN, Smoking, COPD, CAD, Cancer, CVA, ARF, Chemo, Hep., AIDS, mental health diagnosis, sleep apnea, morbid obesity)? @ -none Was patient admitted / discharged? Hospital course, mention meds given and route, prescriptions, significant lab abnormalities, going to OR and other pertinent info. @ - 78 female to the ER for evaluation abdominal pain abdominal colic biliary disease, patient will be admitted for Dr. Joseph to evaluate and treat tomorrow Admitted Undiagnosed new problem with uncertain prognosis? @ -no Drug Therapy requiring intensive monitoring for toxicity (Heparin, Nitro, Insulin, Cardizem)? @ -no Were any procedures done? @ -no Diagnosis/symptom? @ -Biliary colic and dyskinesia Acute, or Chronic, or Acute on Chronic? @ -Acute Uncomplicated (without systemic symptoms) or Complicated (systemic symptoms)? @ -Complicated Side effects of treatment? @ -no Exacerbation, Progression, or Severe Exacerbation? @ -exacerbation Poses a threat to life or bodily function? How? (Chest pain, [place], [place], pneumonia, PE, COPD, DKA, ARF, appy, cholecystitis, CVA, Diverticulitis, Homicidal, Suicidal, threat to staff... and all critical care pts) @ -yes gallbladder disease biliary colic Reevaluation #5: Differential Abdominal Pain Women: Appendicitis, Cholecystitis, diverticulosis, ischemic bowel, pancreatitis, hepatitis, UTI, gastroenteritis, AAA, incarcerated hernia, bowel obstruction, constipation, inflammatory bowel, hepatitis, peptic ulcer disease, splenic infarction, perforated viscus, vulvitis, ovarian torsion, PID, kidney stone, placenta abruption, this is not meant to be an all-inclusive list - Consultations Consultation #1: Spoke with admitting who agrees to admit this patient Medical Decision Making - Medical Decision Making 78 female to the ER for evaluation abdominal pain abdominal colic biliary disease, patient will be admitted for Dr. Joseph to evaluate and treat tomorrow - Lab Data Result diagrams: 09/14/23 09:58 09/14/23 09:58 Lab Results 09/12/23 09/12/23 09/12/23 Range/Units 15:44 15:44 15:44 WBC 13.6 H (3.8-10.6) k/uL RBC 4.88 (3.80-5.40) m/uL Hgb 14.8 (11.4-16.0) gm/dL Hct 46.1 H (34.0-46.0) % MCV 94.5 (80.0-100.0) fL MCH 30.3 (25.0-35.0) pg MCHC 32.0 (31.0-37.0) g/dL RDW 13.1 (11.5-15.5) % Plt Count 249 (150-450) k/uL MPV 8.5 Neutrophils % 82 % Lymphocytes % 5 % Monocytes % 9 % Eosinophils % 1 % Basophils % 1 % Neutrophils # 11.2 H (1.3-7.7) k/uL Lymphocytes # 0.7 L (1.0-4.8) k/uL Monocytes # 1.3 H (0-1.0) k/uL Eosinophils # 0.1 (0-0.7) k/uL Basophils # 0.1 (0-0.2) k/uL PT 10.2 (10.0-12.5) sec INR 0.9 (<1.2) APTT 24.0 (22.0-30.0) sec Sodium 135 L (137-145) mmol/L Potassium 4.5 (3.5-5.1) mmol/L Chloride 99 (98-107) mmol/L Carbon Dioxide 27 (22-30) mmol/L Anion Gap 9 mmol/L BUN 18 H (7-17) mg/dL Creatinine 0.44 L (0.52-1.04) mg/dL Est GFR (CKD-EPI)AfAm >90 (>60 ml/min/1.73 sqM) Est GFR (CKD-EPI)NonAf >90 (>60 ml/min/1.73 sqM) Glucose 111 H (74-99) mg/dL Plasma Lactic Acid [place] (0.7-2.0) mmol/L Calcium 9.4 (8.4-10.2) mg/dL Phosphorus 3.4 (2.5-4.5) mg/dL Magnesium 1.9 (1.6-2.3) mg/dL Total Bilirubin 1.4 H (0.2-1.3) mg/dL AST 73 H (14-36) U/L ALT 51 H (4-34) U/L Alkaline Phosphatase 106 (38-126) U/L Troponin I (0.000-0.034) ng/mL Total Protein 7.8 (6.3-8.2) g/dL Albumin 4.7 (3.5-5.0) g/dL 09/12/23 09/12/23 Range/Units 15:44 15:44 WBC (3.8-10.6) k/uL RBC (3.80-5.40) m/uL Hgb (11.4-16.0) gm/dL Hct (34.0-46.0) % MCV (80.0-100.0) fL MCH (25.0-35.0) pg MCHC (31.0-37.0) g/dL RDW (11.5-15.5) % Plt Count (150-450) k/uL MPV Neutrophils % % Lymphocytes % % Monocytes % % Eosinophils % % Basophils % % Neutrophils # (1.3-7.7) k/uL Lymphocytes # (1.0-4.8) k/uL Monocytes # (0-1.0) k/uL Eosinophils # (0-0.7) k/uL Basophils # (0-0.2) k/uL PT (10.0-12.5) sec INR (<1.2) APTT (22.0-30.0) sec Sodium (137-145) mmol/L Potassium (3.5-5.1) mmol/L Chloride (98-107) mmol/L Carbon Dioxide (22-30) mmol/L Anion Gap mmol/L BUN (7-17) mg/dL Creatinine (0.52-1.04) mg/dL Est GFR (CKD-EPI)AfAm (>60 ml/min/1.73 sqM) Est GFR (CKD-EPI)NonAf (>60 ml/min/1.73 sqM) Glucose (74-99) mg/dL Plasma Lactic Acid [place]is 1.4 (0.7-2.0) mmol/L Calcium (8.4-10.2) mg/dL Phosphorus (2.5-4.5) mg/dL Magnesium (1.6-2.3) mg/dL Total Bilirubin (0.2-1.3) mg/dL AST (14-36) U/L ALT (4-34) U/L Alkaline Phosphatase (38-126) U/L Troponin I <0.012 (0.000-0.034) ng/mL Total Protein (6.3-8.2) g/dL Albumin (3.5-5.0) g/dL - EKG Data -: EKG Interpreted by Me (EKG is sinus 91 W[place] 181 QRS 93 QTc 406) - Radiology Data Radiology results: report reviewed, image reviewed Disposition Clinical Impression: Hyperbilirubinemia, Biliary stones, Abdominal pain, Biliary colic Disposition: ADMITTED IP TO THIS HOSP Condition: Stable Is patient prescribed a controlled substance at d/c from ED?: No Time of Disposition: 15:35
[2023-09-12 15:53] LABS: Basophils # (A) 0.1 k/uL (0-0.2); Basophils % (A) 1 %; Eosinophils # (A) 0.1 k/uL (0-0.7); Eosinophils % (A) 1 %; HCT 46.1 % (34.0-46.0); HGB 14.8 gm/dL (11.4-16.0); Lymphocytes # (A) 0.7 k/uL (1.0-4.8); Lymphocytes % (A) 5 %; MCH 30.3 pg (25.0-35.0); MCV 94.5 fL (80.0-100.0); Mean Platelet Volume 8.5; Monocytes # (A) 1.3 k/uL (0-1.0); Monocytes % (A) 9 %; Neutrophils # (A) 11.2 k/uL (1.3-7.7); Neutrophils % (A) 82 %; Platelet Count 249 k/uL (150-450); RBC 4.88 m/uL (3.80-5.40); RDW 13.1 % (11.5-15.5); WBC 13.6 k/uL (3.8-10.6)
[2023-09-12] MEDS: HYDROmorphone 1 MG/ML 1 ML SYRINGE IVP STA (15:54)
[2023-09-12] MEDS: SODIUM CHLORIDE 0.9% 1,000 ML IV STA ×2 (15:57→18:40)
[2023-09-12 16:05] LABS: ALT 51 U/L (4-34); African American GFR (CKD) >90 (>60 ml/min/1.73 sqM); Anion Gap 9 mmol/L; Blood Urea Nitrogen 18 mg/dL (7-17); Calcium 9.4 mg/dL (8.4-10.2); Carbon Dioxide 27 mmol/L (22-30); Chloride 99 mmol/L (98-107); Glucose 111 mg/dL (74-99); INR 0.9 (<1.2); Non-African American GFR(CKD) >90 (>60 ml/min/1.73 sqM); Prothrombin Time 10.2 sec (10.0-12.5); Sodium 135 mmol/L (137-145); Total Bilirubin 1.4 mg/dL (0.2-1.3)
[2023-09-12 16:38] LABS: AST 73 U/L (14-36); Albumin 4.7 g/dL (3.5-5.0); Alkaline Phosphatase 106 U/L (38-126); Magnesium 1.9 mg/dL (1.6-2.3); Phosphorus 3.4 mg/dL (2.5-4.5); Potassium 4.5 mmol/L (3.5-5.1); Total Protein 7.8 g/dL (6.3-8.2)
[2023-09-12] MEDS ORDERED: NALOXONE 0.4 MG/ML 1 ML VIAL IV PRN (18:04)
[2023-09-12] MEDS ORDERED: ONDANSETRON 4 MG/2 ML VIAL IVP PRN (18:04)
[2023-09-12] MEDS: SODIUM CHLORIDE 0.9% 1,000 ML IV SCH (19:00)
[2023-09-13 10:55] LABS: Basophils # (A) 0.05 X 10*3/uL (0.00-0.10); Basophils % (A) 0.4 %; Eosinophils # (A) 0.04 X 10*3/uL (0.04-0.35); Eosinophils % (A) 0.3 %; HCT 42.9 % (37.2-46.3); HGB 13.8 g/dL (12.0-15.0); Lymphocytes # (A) 1.26 X 10*3/uL (0.90-5.00); Lymphocytes % (A) 9.8 %; MCH 30.5 pg (27.0-32.0); MCHC 32.2 g/dL (32.0-37.0); MCV 94.9 FL (80.0-97.0); Mean Platelet Volume 11.4 FL (9.5-12.2); Monocytes # (A) 1.41 X 10*3/uL (0.20-1.00); Monocytes % (A) 10.9 %; NRBC Per 100 WBC 0 X 10*3/uL (0.00-0.01); Neutrophils # (A) 10.09 X 10*3/uL (1.80-7.70); Neutrophils % (A) 78.3 %; Platelet Count 221 X 10*3/uL (140-440); RBC 4.52 X 10*6/uL (4.10-5.20); RDW 13.2 % (11.5-14.5); WBC 12.89 X 10*3/uL (4.50-10.00)
--- NOTE | 2023-09-13 10:57 | P.CONS ---
History of Present Illness - Reason for Consult Consult date: 09/13/23 Known Requesting physician: Remigio Willingham - Chief Complaint Abdominal pain - History of Present Illness This is a pleasant 78-year-old female who presented to the emergency department with complaints of upper abdominal pain. She has a history of biliary stones status post multiple ERCPs and follows with Dr. Patel. She is status post cholecystectomy about 20 years ago. Her last ERCP was on 05/26/2023 with findings of multiple CBD stones status post balloon stone extraction of almost 7 stones with significant amount of sludge, patent biliary sphincterectomy. Prior to that patient had ERCP done in May 2021 with CBD stone extraction. Patient states she has had a similar pain yesterday however today it has improved. States she slept well. States she had chills and sweats yesterday but she was afebrile on admission. No nausea or vomiting. She did have elevated LFTs and mild leukocytosis. Total bilirubin 1.4 AST 73 ALT 51 alkaline phosphatase 106. Today's labs are currently pending. No imaging was ordered on admission. Review of Systems REVIEW OF SYSTEMS: CARDIOPULMONARY: No chest pain or shortness of breath. Gastrointestinal: Epigastric pain, resolved.. No nausea or vomiting. No hematemesis, coffee-ground emesis. No rectal bleeding, or melena. GENITOURINARY: No dysuria or hematuria. MUSCULOSKELETAL: Reports normal range of motion. SKIN: No rashes. No jaundice. ENDOCRINE: No chills, fevers. No excessive weight gain or loss. No polydipsia or polyuria. PSYCHIATRIC: Unremarkable. NEUROLOGY: No change in mental status. Denies dizziness, headache. ENT: Vision unremarkable. CONSTITUTIONAL: No recent weight loss. No fever, chills, night sweats. Past Medical History Past Medical History: COPD, GERD/Reflux, Hyperlipidemia, Hypertension, Osteoarthritis (OA), Skin Disorder, Thyroid Disorder Additional Past Medical History / Comment(s): CHRONIC BILE STONES (GALL BLADDER REMOVED, HOWEVER YOSSI DUCT CURVED AND BODY CONTINUES TO ACCUMULATE SLUDGE/STONE). Hx Ulcerative Colitis, Hypothyroidism. RASH UNDER BREAST/ABD FOLDS. RASH ONE HANDS AND ARMS. History of Any Multi-Drug Resistant Organisms: None Reported Past Surgical History: Breast Surgery, Cholecystectomy, Hysterectomy, Joint Replacement, Tonsillectomy Additional Past Surgical History / Comment(s): Right knee replacement, cyst removed from back, right breast biopsy, numerous ERCP's. Past Anesthesia/Blood Transfusion Reactions: No Reported Reaction, Motion Sickness Smoking Status: Former smoker - Past Family History Mother Family Medical History: Cancer Additional Family Medical History / Comment(s): Breast Medications and Allergies Home Medications Medication Instructions Recorded Confirmed Type Albuterol Inhaler [Ventolin Hfa 2 puff INHALATION RT-Q6H PRN 11/07/15 09/12/23 History Inhaler] Lisinopril [Prinivil] 5 mg PO DAILY 11/07/15 09/12/23 History Omeprazole 20 mg PO BID 11/07/15 09/12/23 History Simvastatin [Zocor] 40 mg PO DAILY 11/07/15 09/12/23 History Levothyroxine Sodium [Synthroid] 75 mcg PO DAILY 01/12/19 09/12/23 History Nystatin 100,000 Unit/gm Oint 1 applic TOPICAL BID 07/16/20 09/12/23 History [Mycostatin Oint] Furosemide [Lasix] 20 mg PO DAILY 09/12/23 09/12/23 History Tiotropium 2.5 Mcg/Puff [Spiriva 2 puff INHALATION RT-DAILY 09/12/23 09/12/23 History Respimat 2.5 Mcg] ursodioL [Ursodiol] 500 mg PO BID-W/MEALS 09/12/23 09/12/23 History Allergies Allergy/AdvReac Type Severity Reaction Status Date / Time ibuprofen Allergy Severe Nausea Verified 09/12/23 15:00 codeine Allergy Intermediate Nausea Verified 09/12/23 15:00 Physical Exam Vitals: Vital Signs Temp Pulse Pulse Resp BP BP Pulse Ox 09/13/23 08:20 90 L 09/13/23 07:00 98.6 F 73 20 114/72 89 L 09/13/23 02:00 98.4 F 77 17 114/65 92 L 09/12/23 20:00 98.1 F 103 H 20 150/78 88 L 09/12/23 14:58 98 F 93 20 152/83 99 Intake and Output 09/12/23 09/13/23 09/13/23 22:59 06:59 14:59 Other: Voiding Method Toilet Toilet # Voids 1 1 Weight 107.048 kg General appearance: The patient is alert, oriented, appears in no acute distress. HET: Head is normocephalic and atraumatic. Conjunctiva pink. Sclera anicteric. Neck: Supple without lymphadenopathy. Trachea midline. Heart: Regular. Lungs: Equal expansion, normal respiratory effort. Abdomen: Soft, mild epigastric tenderness, nondistended. Skin: No rashes. No jaundice. Extremities: Normal skin color and turgor. No pedal edema. Neurological: No focal deficits. Alert and oriented x3. Results CBC & Chem 7: 09/13/23 06:02 09/13/23 06:02 Labs: Abnormal Lab Results - Last 24 Hours (Table) 09/12/23 09/12/23 Range/Units 15:44 15:44 WBC 13.6 H (3.8-10.6) k/uL Hct 46.1 H (34.0-46.0) % Neutrophils # 11.2 H (1.3-7.7) k/uL Lymphocytes # 0.7 L (1.0-4.8) k/uL Monocytes # 1.3 H (0-1.0) k/uL Sodium 135 L (137-145) mmol/L BUN 18 H (7-17) mg/dL Creatinine 0.44 L (0.52-1.04) mg/dL Glucose 111 H (74-99) mg/dL Total Bilirubin 1.4 H (0.2-1.3) mg/dL AST 73 H (14-36) U/L ALT 51 H (4-34) U/L Assessment and Plan (1) Abdominal pain Narrative/Plan: 78-year-old female with a history of cholecystectomy and multiple ERCPs in the past for CBD stones presents with epigastric pain and elevated LFTs consistent with cholestatic pattern likely secondary to choledocholithiasis. Gallbladder ultrasound ordered. Will await repeat labs and ultrasound report. Patient's symptoms currently improved, further recommendations forthcoming. Current Visit: Yes Status: Acute Code(s): R10.9 - UNSPECIFIED ABDOMINAL PAIN SNOMED Code(s): 56575089 (2) Elevated liver enzymes Current Visit: No Status: Acute Code(s): R74.8 - ABNORMAL LEVELS OF OTHER SERUM ENZYMES SNOMED Code(s): 467214538 (3) Choledocholithiasis Narrative/Plan: Ultrasound reporting CBD stone, with CBD dilation. Plan for ERCP. Current Visit: Yes Status: Acute Code(s): K80.50 - CALCULUS OF BILE DUCT W/O CHOLANGITIS OR CHOLECYST W/O OBST SNOMED Code(s): 985124319 Plan: 1. Continue symptomatic and supportive care 2. Pain medications as needed 3. Abdominal ultrasound ordered and reviewed 4. Antiemetics as needed 5. Patient may have low-fat diet following ultrasound 6. Repeat CBC, CMP 7. N.p.o. after midnight 8. Into send held due to ibuprofen allergy 9. Plan for ERCP tomorrow Thank you for this consultation, we will continue to follow. Dr. Anne-Marie Patel I agree with the dictator's note, documented as a scribe by Rosalina Crane.
[2023-09-13 11:25] LABS: ALT 59 U/L (8-44); AST 42 U/L (13-35); Albumin 4.3 g/dL (3.8-4.9); Albumin/Globulin Ratio 2.05 Ratio (1.60-3.17); Alkaline Phosphatase 109 U/L (41-126); Calcium 9.4 mg/dL (8.7-10.3); Carbon Dioxide 29.4 mmol/L (21.6-31.8); Chloride 98 mmol/L (96-109); Globulin 2.1 g/dL (1.6-3.3); Glucose 106 mg/dL (70-110); Magnesium 2.1 mg/dL (1.5-2.4); Phosphorus 3.8 mg/dL (2.4-5.1); Potassium 4.3 mmol/L (3.5-5.5); Sodium 140 mmol/L (135-145); Total Bilirubin 0.8 mg/dL (0.3-1.2); Total Protein 6.4 g/dL (6.2-8.2)
[2023-09-13] MEDS ORDERED: ALBUTEROL HFA INHALER INHALATION PRN (13:07)
--- NOTE | 2023-09-13 13:18 | P.HPIM ---
History of Present Illness 78-year-old with complaints of right upper quadrant abdominal pain.. Patient is found to have mildly elevated liver enzymes AST and ALT with elevated bilirubin of 1.4 patient has extensive history of poor oral form common bile common bile duct stones in the past because of tortuous bile duct. Patient had cholecystectomy in the past and multiple ERCPs in the common bile duct due to tortuosity of the common bile duct. Her recent ERCP is on May 26, 2023. Patient symptoms presently completely resolved no abdominal pain patient is send LDL coming down bilirubin is within normal limits, ultrasound of the gallbladder was ordered. REVIEW OF SYSTEMS: All other systems are negative except those mentioned in the HPI PHYSICAL EXAMINATION: GENERAL: The patient is alert and oriented x3, not in any acute distress. Well developed, well nourished. HEENT: Pupils are round and equally reacting to light. EOMI. No scleral icterus. No conjunctival pallor. Normocephalic, atraumatic. No pharyngeal erythema. No thyromegaly. CARDIOVASCULAR: S1 and S2 present. No murmurs, rubs, or gallops. PULMONARY: Chest is clear to auscultation, no wheezing or crackles. ABDOMEN: Soft, nontender, nondistended, normoactive bowel sounds. No palpable organomegaly. MUSCULOSKELETAL: No joint swelling or deformity. EXTREMITIES: No cyanosis, clubbing, or pedal edema. NEUROLOGICAL: Gross neurological examination did not reveal any focal deficits. SKIN: No rashes. Assessment and plan -Right upper quadrant abdominal pain probably secondary to common bile duct stones. Her symptoms resolved and the AST and ALT are improving awaiting ultr asound for does not show any common bile duct stones patient may not need ERCP and probably can be discharged. -COPD without any acute exacerbation -Hyperlipidemia -Hypertension -Hypothyroidism -Gastroesophageal reflux disease for above-mentioned chronic critical problems patient will be resumed on appropriate home medications regarding hypertension patient is presently hypotensive hold off on lisinopril and Lasix at this time. DVT prophylaxis: Ambulation Past Medical History Past Medical History: COPD, GERD/Reflux, Hyperlipidemia, Hypertension, Osteoarthritis (OA), Skin Disorder, Thyroid Disorder Additional Past Medical History / Comment(s): CHRONIC BILE STONES (GALL BLADDER REMOVED, HOWEVER YOSSI DUCT CURVED AND BODY CONTINUES TO ACCUMULATE SLUDGE/STONE). Hx Ulcerative Colitis, Hypothyroidism. RASH UNDER BREAST/ABD FOLDS. RASH ONE HANDS AND ARMS. History of Any Multi-Drug Resistant Organisms: None Reported Past Surgical History: Breast Surgery, Cholecystectomy, Hysterectomy, Joint Replacement, Tonsillectomy Additional Past Surgical History / Comment(s): Right knee replacement, cyst removed from back, right breast biopsy, numerous ERCP's. Past Anesthesia/Blood Transfusion Reactions: No Reported Reaction, Motion Sickness Smoking Status: Former smoker - Past Family History Mother Family Medical History: Cancer Additional Family Medical History / Comment(s): Breast Medications and Allergies Home Medications Medication Instructions Recorded Confirmed Type Albuterol Inhaler [Ventolin Hfa 2 puff INHALATION RT-Q6H PRN 11/07/15 09/12/23 History Inhaler] Lisinopril [Prinivil] 5 mg PO DAILY 11/07/15 09/12/23 History Omeprazole 20 mg PO BID 11/07/15 09/12/23 History Simvastatin [Zocor] 40 mg PO DAILY 11/07/15 09/12/23 History Levothyroxine Sodium [Synthroid] 75 mcg PO DAILY 01/12/19 09/12/23 History Nystatin 100,000 Unit/gm Oint 1 applic TOPICAL BID 07/16/20 09/12/23 History [Mycostatin Oint] Furosemide [Lasix] 20 mg PO DAILY 09/12/23 09/12/23 History Tiotropium 2.5 Mcg/Puff [Spiriva 2 puff INHALATION RT-DAILY 09/12/23 09/12/23 History Respimat 2.5 Mcg] ursodioL [Ursodiol] 500 mg PO BID-W/MEALS 09/12/23 09/12/23 History Allergies Allergy/AdvReac Type Severity Reaction Status Date / Time ibuprofen Allergy Severe Nausea Verified 09/12/23 15:00 codeine Allergy Intermediate Nausea Verified 09/12/23 15:00 Physical Exam Vitals: Vital Signs Temp Pulse Pulse Resp BP BP Pulse Ox 09/13/23 08:20 90 L 09/13/23 08:00 20 09/13/23 07:00 98.6 F 73 20 114/72 89 L 09/13/23 02:00 98.4 F 77 17 114/65 92 L 09/12/23 20:00 98.1 F 103 H 20 150/78 88 L 09/12/23 14:58 98 F 93 20 152/83 99 Intake and Output 09/12/23 09/13/23 09/13/23 22:59 06:59 14:59 Other: Voiding Method Toilet Toilet Toilet # Voids 1 1 Weight 107.048 kg Results CBC & Chem 7: 09/13/23 06:02 09/13/23 06:02 Labs: Abnormal Lab Results - Last 24 Hours (Table) 09/12/23 09/12/23 09/13/23 Range/Units 15:44 15:44 06:02 WBC 13.6 H 12.89 H (3.8-10.6) k/uL Hct 46.1 H (34.0-46.0) % Neutrophils # 11.2 H 10.09 H (1.3-7.7) k/uL Lymphocytes # 0.7 L (1.0-4.8) k/uL Monocytes # 1.3 H 1.41 H (0-1.0) k/uL Sodium 135 L (137-145) mmol/L Anion Gap (4.00-12.00) mmol/L BUN 18 H (7-17) mg/dL Creatinine 0.44 L (0.52-1.04) mg/dL Glucose 111 H (74-99) mg/dL Total Bilirubin 1.4 H (0.2-1.3) mg/dL AST 73 H (14-36) U/L ALT 51 H (4-34) U/L 09/13/23 Range/Units 06:02 WBC (3.8-10.6) k/uL Hct (34.0-46.0) % Neutrophils # (1.3-7.7) k/uL Lymphocytes # (1.0-4.8) k/uL Monocytes # (0-1.0) k/uL Sodium (137-145) mmol/L Anion Gap 12.60 H (4.00-12.00) mmol/L BUN (7-17) mg/dL Creatinine (0.52-1.04) mg/dL Glucose (74-99) mg/dL Total Bilirubin (0.2-1.3) mg/dL AST 42 H (14-36) U/L ALT 59 H (4-34) U/L Thrombosis Risk Factor Assmnt - Choose All That Apply Any of the Below Risk Factors Present?: Yes Each Factor Represents 1 point: Obesity (BMI >25) Each Risk Factor Represents 3 Points: Age 75 years or older Other congenital or acquired thrombophilia - If yes, enter type in comment: No Thrombosis Risk Factor Assessment Total Risk Factor Score: 4 Thrombosis Risk Factor Assessment Level: Moderate Risk
--- NOTE | 2023-09-13 14:40 | US ---
EXAMINATION TYPE: US abdomen limited DATE OF EXAM: 09/13/2023 COMPARISON: 01/12/2019 CLINICAL INDICATION: Female, 78 years old with history of Abd pain, eval CBD stones; CBD stones TECHNIQUE: Multiple sonographic images of the right upper quadrant are obtained. FINDINGS: EXAM MEASUREMENTS: Liver Length: 14.4 cm Gallbladder: Surgically absent CBD: 1.0 cm Right Kidney: 11.2x6.2x5.5 cm [employer]ACH NOTES: exam limited by bowel gas Pancreas: Tail obscured by overlying bowel gas, duct caliber upper limits of normal at 2mm Liver: wnl Gallbladder: Surgically absent Evidence for sonographic Barrett's sign: No CBD: dilated, large 2cm stone noted within Right Kidney: 7.7x7.9x8.3cm cystic area. No hydronephrosis. IMPRESSION: 1. Choledocholithiasis with a 2 cm duct stone. Bile duct dilated up to 1.0 cm. Correlate with alkalin e phosphatase and bilirubin levels. 2. Status post cholecystectomy.
[2023-09-13] MEDS: NYSTATIN 100,000 UNIT/GM OINT 30 GM TUBE TOPICAL SCH (20:55)
[2023-09-14] MEDS: PANTOPRAZOLE 40 MG TABLET PO SCH (05:56)
[2023-09-14] MEDS: LEVOTHYROXINE 75 MCG TAB PO SCH (06:21)
[2023-09-14] MEDS: TIOTROPIUM 2.5 MCG INHALER INHALATION SCH (08:27)
[2023-09-14 10:13] LABS: HGB 13.3 gm/dL (11.4-16.0); MCH 30.8 pg (25.0-35.0); MCHC 31.6 g/dL (31.0-37.0); MCV 97.6 fL (80.0-100.0); Mean Platelet Volume 8.3; Platelet Count 202 k/uL (150-450); RDW 12.9 % (11.5-15.5); WBC 6.8 k/uL (3.8-10.6)
[2023-09-14 10:25] LABS: ALT 40 U/L (4-34); AST 33 U/L (14-36); African American GFR (CKD) >90 (>60 ml/min/1.73 sqM); Albumin 3.6 g/dL (3.5-5.0); Albumin/Globulin Ratio 1.4; Alkaline Phosphatase 78 U/L (38-126); Anion Gap 5 mmol/L; Blood Urea Nitrogen 11 mg/dL (7-17); Calcium 8.9 mg/dL (8.4-10.2); Carbon Dioxide 29 mmol/L (22-30); Chloride 104 mmol/L (98-107); Globulin 2.5 g/dL; Glucose 101 mg/dL (74-99); Non-African American GFR(CKD) >90 (>60 ml/min/1.73 sqM); Potassium 3.8 mmol/L (3.5-5.1); Sodium 138 mmol/L (137-145); Total Bilirubin 1.1 mg/dL (0.2-1.3); Total Protein 6.1 g/dL (6.3-8.2)
[2023-09-14] MEDS: LEVOFLOXACIN 500MG-D5W PMX 500 MG in DEXTROSE/WATER 1 100ML.BAG IVPB SCH (12:26)
[2023-09-14] MEDS: IV FLUID CONTINUATION 1,000 ML IV ONE (14:27)
[2023-09-14] MEDS: IOPAMIDOL-300 50ML BTL MISCELLANE ONE ×3 (14:29→15:10)
[2023-09-14] MEDS ORDERED: SUCCINYLCHOLINE CHLORIDE 200 MG/10 ML VIAL IV ONE (14:45)
[2023-09-14] MEDS ORDERED: DEXAMETHASONE SOD PHOSPHATE 4 MG/ML 1 ML VIAL ONE (14:45)
[2023-09-14] MEDS ORDERED: ONDANSETRON 4 MG/2 ML VIAL ONE (14:45)
[2023-09-14] MEDS ORDERED: fentaNYL (PF) 50 MCG/ML 2 ML AMP ONE (14:45)
[2023-09-14] MEDS ORDERED: PROPOFOL 10 MG/ML 20 ML VIAL IV ONE (14:45)
[2023-09-14] MEDS ORDERED: LIDOCAINE 1% INJ 10MG/ML (20 ML MDV) ONE (14:45)
[2023-09-14] MEDS ORDERED: PHENYLEPHRINE-0.9% NACL SYG 1,000 MCG/10 ML SYRINGE ONE (14:45)
--- NOTE | 2023-09-14 15:36 | P.PCN ---
Date of Procedure: 09/14/23 Procedure(s) Performed: Brief history: Patient is a 78 year-old pleasant lady scheduled for an ERCP as part of evaluation of abdominal pain and elevated serum transaminases for the last 2 days' duration. She has history of recurrent choledocholithiasis. Last ERCP was in April 2023 and multiple stones were extracted. She called me 2 days ago with worsening epigastric pain with low-grade fever and hence was advised to go to emergency room and subsequently admitted to the hospital. Scheduled for repeat ERCP for possible current common bile duct stone Procedure performed: ERCP with balloon stone extraction Preoperative diagnoses: Normal pain/elevated LFTs and retained CBD stones IV sedation per anesthesia: Procedure: After informed consent was obtained from the patient and after the risks benefits and complications including bleeding perforation and pancreatitis explained in detail the patient was brought into the endoscopy unit. The patient was placed in prone position and IV conscious sedation was administered by anesthesia under continuous monitoring. The Olympus side-viewing duoden oscope was then inserted into the mouth and esophagus intubated without any difficulty. The scope was gradually advanced into the stomach and duodenum. The major papilla was identified without any difficulty. There was evidence of previous biliary sphincterotomy noted. 11.5 mm balloon catheter was passed into the common bile duct and and injected with a diet and upon careful examination the common bile duct appeared dilated measuring 15 mm in diameter with f biologically defect noted measuring about 1.5 cm in size. Using a 15 mm balloon catheter the stone was extracted with extreme difficulty. Following the distal occlusion cholangiogram was performed and no other filling defects were noted and the patient tolerated procedure. Impression: Dilated common bile duct with one large filling defect measured 1.5 cm in size s/p status post balloon stone extraction as described above Recommendations: The findings of this examination were discussed with the patient as well as a family. Advance diet as tolerated if she is doing well she can be discharged home today with outpatient follow-up in 2 to 3 weeks.
--- NOTE | 2023-09-14 16:53 | FL ---
EXAMINATION TYPE: FL ERCP DATE OF EXAM: 09/14/2023 FLUOROSCOPY Fluoroscopy time of 30 seconds was used during ERCP. 4 image/s document/s the procedure. 3.6538 Gyc m2 DAP
[2023-09-14] MEDS: ATORVASTATIN 20 MG TAB PO SCH (17:08)
--- NOTE | 2023-09-14 21:45 | P.PN ---
Subjective Progress Note Date: 09/14/23 78-year-old with complaints of right upper quadrant abdominal pain.. Patient is found to have mildly elevated liver enzymes AST and ALT with elevated bilirubin of 1.4 patient has extensive history of poor oral form common bile common bile duct stones in the past because of tortuous bile duct. Patient had cholecystectomy in the past and multiple ERCPs in the common bile duct due to tortuosity of the common bile duct. Her recent ERCP is on May 26, 2023. Patient symptoms presently completely resolved no abdominal pain patient is send LDL coming down bilirubin is within normal limits, ultrasound of the gallbladder was ordered. 09/14/2023 Patient is evaluated today in the AM resting in bed. Abdominal ultrasound finds 2 cm stone in the common bile duct with concern for choledocholithiasis. Antonia ent will be taken for an ERCP later on today. She is not having much abdominal pain at this time. Review of Systems Constitutional: Denied any fatigue denied any fever. Cardio vascular: denied any chest pain, palpitations Gastrointestinal: denied any nausea, vomiting, diarrhea Pulmonary: Denied any shortness of breath cough Neurologic denied any new focal deficits All inpatient medications were reviewed and appropriate changes in these medications as dictated in the interval history and assessment and plan. PHYSICAL EXAMINATION: GENERAL: The patient is alert and oriented x3, not in any acute distress. Well developed, well nourished. HEENT: Pupils are round and equally reacting to light. EOMI. No scleral icterus. No conjunctival pallor. Normocephalic, atraumatic. No pharyngeal erythema. No thyromegaly. CARDIOVASCULAR: S1 and S2 present. No murmurs, rubs, or gallops. PULMONARY: Chest is clear to auscultation, no wheezing or crackles. ABDOMEN: Soft, nontender, nondistended, normoactive bowel sounds. No palpable organomegaly. MUSCULOSKELETAL: No joint swelling or deformity. EXTREMITIES: No cyanosis, clubbing, or pedal edema. NEUROLOGICAL: Gross neurological examination did not reveal any focal deficits. SKIN: No rashes. Assessment and plan -Right upper quadrant abdominal pain probably secondary to common bile duct stones. Pending ERCP. -COPD without any acute exacerbation -Hyperlipidemia -Hypertension can resume lisinopril in the AM. -Hypothyroidism -Gastroesophageal reflux disease DVT prophylaxis: Ambulation GI prophylaxis Full Code The impression and plan of care has been dictated by Griselda Cantu, Nurse Practitioner as directed. Dr. Shanice MD I have performed a history and physical examination and medical decision making of this patient, discussed the same with the dictator, and agree with the dictators assessment and plan as written, documented as a scribe. Based on total visit time, I have performed more than 50% of this visit. Objective - Vital Signs Vital signs: Vital Signs Temp 98.0 F 09/14/23 20:00 Pulse 86 09/14/23 20:10 Resp 20 09/14/23 20:00 BP 153/84 09/14/23 20:00 Pulse Ox 93 L 09/14/23 20:00 FiO2 Intake & Output 09/14/23 09/14/23 09/15/23 06:59 18:59 06:59 Intake Total 568 Balance 568 Intake: IV 450 Oral 118 Other: Voiding Method Toilet Toilet Toilet # Voids 3 3 2 - Labs CBC & Chem 7: 09/14/23 09:58 09/14/23 09:58 Labs: Abnormal Lab Results - Last 24 Hours (Table) 09/14/23 Range/Units 09:58 Creatinine 0.42 L (0.52-1.04) mg/dL Glucose 101 H (74-99) mg/dL ALT 40 H (4-34) U/L Total Protein 6.1 L (6.3-8.2) g/dL Assessment and Plan Time with Patient: Less than 30
[2023-09-15 08:12] VITALS: BP 116/75; PULSE 66; RESP 19; TEMP 97.5
[2023-09-15] MEDS: lisinopriL 5 MG TAB PO SCH (09:17)
--- NOTE | 2023-09-17 21:59 | P.DS ---
Providers Date of admission: 09/12/23 18:05 Attending physician: Dami العلي Consults: 09/12/23 18:04 Consult Physician Routine Consulting Provider: Pat Patel Consult Reason/Comments: known Do you want consulting provider notified?: Yes Primary care physician: Nati Johnson MD Hospital Course: Final Diagnosis -Right upper quadrant abdominal pain secondary to common bile duct stones s/p ERCP with stone removal -COPD without any acute exacerbation -Hyperlipidemia -Hypertension can resume lisinopril -Hypothyroidism -Gastroesophageal reflux disease Discharge Disposition Patient is stable for discharge home. Satus post ERCP. Patient to follow up with DR. Anne-Marie Patel in the office on discharge. Follow up with PCP Dr. Johnson in 1 to 2 days. Patient to continue low fat diet. Hospital Course Patient is a 78-year-old with complaints of right upper quadrant abdominal pain. Patient is found to have mildly elevated liver enzymes AST and ALT with elevated bilirubin of 1.4 patient has extensive history of poor oral form common bile common bile duct stones in the past because of tortuous bile duct. Patient had cholecystectomy in the past and multiple ERCPs in the common bile duct due to tortuosity of the common bile duct. Her recent ERCP is on May 26, 2023. Patient symptoms presently completely resolved no abdominal pain patient is send LDL coming down bilirubin is within normal limits, AGallbladder ultrasound finds 2 cm stone in the common bile duct with concern for choledocholithiasis. Patient was taken for an ERCP there was dilated common bile duct with one large filling defect measured 1.5 cm in size s/p status post balloon stone extraction. Post procedure patient had abdominal pain and bloating. Was monitored overnight now tolerating diet and will be discharged home. Please see medication reconciliation for a list of current medications. Thank you for allowing us to participate in the care of this patient. The impression and plan of care has been dictated by Griselda Cantu, Nurse Practitioner as directed. Dr. Shanice MD I have performed a history and physical examination and medical decision making of this patient, discussed the same with the dictator, and agree with the dictators assessment and plan as written, documented as a scribe. Based on total visit time, I have performed more than 50% of this visit. Patient Condition at Discharge: Stable Plan - Discharge Summary Discharge Rx Participant: No New Discharge Prescriptions: Continue Omeprazole 20 mg PO BID Simvastatin [Zocor] 40 mg PO DAILY Lisinopril [Prinivil] 5 mg PO DAILY Albuterol Inhaler [Ventolin Hfa Inhaler] 2 puff INHALATION RT-Q6H PRN PRN Reason: Shortness Of Breath Levothyroxine Sodium [Synthroid] 75 mcg PO DAILY Nystatin 100,000 Unit/gm Oint [Mycostatin Oint] 1 applic TOPICAL BID Tiotropium 2.5 Mcg/Puff [Spiriva Respimat 2.5 Mcg] 2 puff INHALATION RT-DAILY Furosemide [Lasix] 20 mg PO DAILY ursodioL [Ursodiol] 500 mg PO BID-W/MEALS Discharge Medication List Albuterol Inhaler [Ventolin Hfa Inhaler] 2 puff INHALATION RT-Q6H PRN 11/07/15 [History] Lisinopril [Prinivil] 5 mg PO DAILY 11/07/15 [History] Omeprazole 20 mg PO BID 11/07/15 [History] Simvastatin [Zocor] 40 mg PO DAILY 11/07/15 [History] Levothyroxine Sodium [Synthroid] 75 mcg PO DAILY 01/12/19 [History] Nystatin 100,000 Unit/gm Oint [Mycostatin Oint] 1 applic TOPICAL BID 07/16/20 [History] Furosemide [Lasix] 20 mg PO DAILY 09/12/23 [History] Tiotropium 2.5 Mcg/Puff [Spiriva Respimat 2.5 Mcg] 2 puff INHALATION RT-DAILY 09/12/23 [History] ursodioL [Ursodiol] 500 mg PO BID-W/MEALS 09/12/23 [History] Follow up Appointment(s)/Referral(s): Pat Patel MD [STAFF PHYSICIAN] - 2 Weeks (September 28 at 3pm) Nati Johnson MD [Primary Care Provider] - 1-2 days Patient Instructions/Handouts: Low Fat Diet (DC) Activity/Diet/Wound Care/Special Instructions: FOLLOW DIRECTED, SOONER FOR WORSENING SYMPTOMS, PROBLEMS, OR CONCERNS. Discharge Disposition: HOME SELF-CARE
== END 2023-09-15 11:30 | disposition home or self-care (01) ==
LOC: EC 14:37 → 6NMEDSUR 18:05
PROVIDERS: ADMIT Hospitalist; ATTEND Hospitalist
DX: K80.50 Calculus of bile duct without cholangitis or cholecystitis without obstruction (principal); R74.8 Abnormal levels of other serum enzymes; I10 Essential (primary) hypertension; J44.9 Chronic obstructive pulmonary disease, unspecified; K21.9 Gastro-esophageal reflux disease without esophagitis; E78.5 Hyperlipidemia, unspecified; E03.9 Hypothyroidism, unspecified; Z87.891 Personal history of nicotine dependence; Z90.49 Acquired absence of other specified parts of digestive tract; Z79.890 Hormone replacement therapy; Z79.899 Other long term (current) drug therapy; Z88.5 Allergy status to narcotic agent; Z88.6 Allergy status to analgesic agent
CPT/HCPCS: 96361 ×2; 96365; 96375; 99285; 36415; 94640 ×2; 94760 ×2; 93005; 80053 ×3; 83605; 83735 ×2; 84100 ×2; 84484; 85025 ×2; 85027; 85610; 85730; 74330; 76705; 43264; G0378 ×4; J0330; J1100; J2405; J1956; J2001; J3010; J1170; J2704; Q9967; J2371; 43260